=== PATIENT | female | born 1940 | race Caucasian/White ===

== ENCOUNTER → 2016-10-22 | Outpatient (CLI) | payer OTHER, BC ==
[~2016-10-22] MED LIST: ALBU1.257 NEB; ASPI81TA28 PO; ATRINS NEB; AZIT500T26 PO; CALC500C70 PO; CLB/200 PO; DXY100 PO; ERGO500037 PO; FAMO20TA11 PO; FLUT50SP45; LEVO-459 PO; LEVO1TAB35 PO; LISI-461 PO; METO25TA3 PO; MTR400 PO; NCDT21 TD; PRD10 PO; PRED20TA PO; RIFA150C15 PO; SIMV-151 PO; SYMIN160 INH; TRAM-10 PO; [UNRECOGNIZED DRUG - CODE] PO
--- NOTE | 2016-10-22 16:51 | DIAGNOSTIC IMAGING REPORT ---
RIGHT WRIST MIN 3 VIEWS ROUTINE CLINICAL HISTORY: R70.0 Elevated sedimentation rate Right COMPARISON: None. DISCUSSION: Moderate degenerative change throughout. No fracture or dislocation. Bone mineralization is within normal limits. There is no evidence for soft tissue swelling. IMPRESSION: Moderate degenerative change. No acute process. Electronically signed by: Joshua Villalpando M.D. 10/22/2016 4:50 PM Dictated Date/Time: 10/22/2016 4:50 PM
[2016-10-22 18:05] LABS: ALKALINE PHOSPHATASE 70 U/L (45-117); ALT/SGPT 16 U/L (12-78); AST/SGOT 14 U/L (15-37); RHEUMATOID FACTOR < 10.0 U/mL (0-15)
== END | disposition home or self-care (01) ==
LOC: C.RAD1850 16:20
PROVIDERS: ATTEND Internal Medicine Rheumatology
DX: R70.0 Elevated erythrocyte sedimentation rate (principal); A31.0 Pulmonary mycobacterial infection

== ENCOUNTER → 2016-11-17 | Outpatient (CLI) | payer OTHER, BC ==
--- NOTE | 2016-11-17 14:56 | DIAGNOSTIC IMAGING REPORT ---
CHEST CT WITHOUT CONTRAST CT DOSE: 461.39 mGycm HISTORY: Nodule R91.1 Solitary pulmonary [id number] Malignant neoplasm of upper TECHNIQUE: Multiaxial CT images of the chest were performed without contrast. COMPARISON: CT examination dated 01/23/2016, 08/19/2016, as well as the current study. FINDINGS: Progressive increase in size of a nodular density now measuring 16 x 14 mm medially adjacent to what appears to be a surgical clip and/or marker at the left upper lobe resection site. There is mild degree of stable pleural thickening laterally. Differential considerations include a postprocedural granuloma of versus recurrent neoplasm. The lungs otherwise show emphysematous and chronic interstitial change. There is a tubular structure left lung base diminished in size from the prior study. There are mild basilar fibrotic changes the most part stable. There is no significant hilar adenopathy. There is an anterior mediastinal node stable from the prior examination measuring 1.6 cm in long dimension. IMPRESSION: 1. Progressive increase in size of a nodular density left midlung region at the site of the previously described tubular nodularity. 2. It is immediately adjacent to a surgical clip or marker, and currently measures 1.6 x 1.4 cm. 3. Diagnostic considerations include recurrent or residual neoplasm, versus the less likely possibility of a scar granuloma 4. Stable mid mediastinal nodes. 5. Emphysematous change and basilar chronic fibrotic change. 6. Tubular structure left lung base diminished in size by 50% from the prior study Electronically signed by: Joshua Villalpando M.D. 11/17/2016 2:55 PM Dictated Date/Time: 11/17/2016 2:40 PM
== END | disposition home or self-care (01) ==
LOC: C.CTS 14:21
PROVIDERS: ATTEND Surgery
DX: C34.12 Malignant neoplasm of upper lobe, left bronchus or lung (principal); R91.1 Solitary pulmonary nodule; R91.8 Other nonspecific abnormal finding of lung field

== ENCOUNTER → 2016-11-26 | Outpatient (CLI) | payer OTHER, BC ==
--- NOTE | 2016-11-26 14:14 | DIAGNOSTIC IMAGING REPORT ---
PET/CT HISTORY: Lung cancer. TECHNIQUE: PET/CT was performed from the base of the skull through the pelvis following the intravenous administration of 13.7 mCi of F18-FDG. Non-contrast CT imaging was performed over the same range without breath-hold for attenuation correction of PET images and anatomic correlation, but not for primary interpretation as it is not of standard diagnostic quality. CT DOSE: COMPARISON: Chest CT 11/17/2016. PET CT 05/21/2016. FINDINGS: HEAD AND NECK: Scattered areas of FDG uptake within the neck are likely physiologic. Dominant focus anterior to the left C1 arch remains unchanged. CHEST: There is a new 1.8 cm FDG avid left supraclavicular lymph node demonstrating an SUV max of 5. There are new enlarged FDG avid left hilar, prevascular, and precarinal lymph nodes. Dominant precarinal lymph node measures 2.2 cm and demonstrates an SUV max of 6.4. These FDG avid lymph nodes are consistent with metastatic disease. Intense FDG uptake associated with the 2.6 x 1.7 cm mass adjacent to the left upper lobe suture line. This demonstrates an SUV max of 10. This is consistent with recurrent/residual neoplasm. Emphysema. There is a 1.3 cm ill-defined subcutaneous soft tissue focus within the right posterior back on image 100. This also demonstrates abnormal FDG uptake with an SUV max of 4.6 ABDOMEN/PELVIS: Below the diaphragm, tracer is distributed physiologically in the gastrointestinal and genitourinary tracts. There is no significant lymphadenopathy and no FDG-avid disease. MUSCULOSKELETAL: There is no FDG-avid or destructive bone lesion. IMPRESSION: 1. Interval development of mediastinal, left hilar, and left supraclavicular FDG avid lymphadenopathy consistent with metastatic disease. 2. A 2.6 x 1.7 cm left upper lobe mass adjacent to the suture line which demonstrates intense FDG uptake. This is consistent with recurrent/residual neoplasm. 3. A 1.3 cm ill-defined subcutaneous soft tissue focus within the right posterior back. This demonstrates abnormal FDG uptake. A metastatic focus at this location is considered less likely but not entirely excluded. This bears watching on future examinations. Electronically signed by: Armando Hidalgo M.D. 11/26/2016 2:13 PM Dictated Date/Time: 11/26/2016 2:02 PM
--- NOTE | 2016-12-04 10:05 | CODING QUERY MEDICAL NECESSITY ---
SUPPORTING DIAGNOSIS NEEDED A supporting diagnosis is required for the test/procedure performed on this patient in order for us to be reimbursed by the patient's insurance. Please provide a supporting diagnosis for the following test/procedure listed below next to the test name along with your signature. *If there is no additional diagnosis for this patient that would support the following test/procedure please document that below next to the test/procedure. Test(s)/Procedure(s) that require a supporting diagnosis: DOS 11/26 * PET/CT skull-thigh DIAGNOSIS: Provider Signature: Date: Thank you Neva Mitchell Health Information Management Once completed, please kindly fax back to [phone] For questions please call [phone]
== END | disposition home or self-care (01) ==
LOC: C.PET 11:20
PROVIDERS: ATTEND Surgery
DX: C34.90 Malignant neoplasm of unspecified part of unspecified bronchus or lung (principal); R91.1 Solitary pulmonary nodule

== ENCOUNTER → 2017-02-10 | Outpatient (CLI) | payer OTHER, BC ==
[~2017-02-10] MED LIST changes: -CALC500C70 PO; -NCDT21 TD
--- NOTE | 2017-02-10 11:13 | DIAGNOSTIC IMAGING REPORT ---
CT OF THE CHEST WITHOUT IV CONTRAST CLINICAL HISTORY: Solitary pulmonary nodule. Malignant neoplasm of left upper lobe. COMPARISON STUDY: Chest CT November 17, 2016 and PET/CT November 26, 2016. CT DOSE: 365.67 mGycm TECHNIQUE: Axial images of the chest were obtained without IV contrast. Images were reviewed in the axial, sagittal, and coronal planes. IV contrast was not administered for this examination. FINDINGS: Severe emphysema is noted. The patient is status post left upper lobe wedge resection. A 1.9 x 1.9 cm irregular nodule adjacent to the resection margin has increased in size since exam of November 17, 2016 when it measured 1.8 x 1.6 cm. Linear opacities within the lungs reflect atelectasis or scarring. Several left supraclavicular lymph nodes have moderately increased in size since prior chest CT and PET/CT. An index left supraclavicular node shown image 12 of 52 measures 1.3 cm. Mediastinal and left hilar nodes have increased in size as well. A precarinal node measures 3.2 x 2 cm. It previously measured 1.7 x 1.4 cm. A prevascular node measures 1.6 cm. It previously measured 1 cm. The heart is mildly enlarged. There is no pericardial effusion. There is no pneumothorax or pleural effusion. Bony thorax and upper abdomen are unremarkable. IMPRESSION: Findings consistent with progression of recurrent malignancy. Mild interval increase in size of an irregular 1.9 cm nodule adjacent to the resection margin which reflects recurrent neoplasm. Moderate increase in left supraclavicular and mediastinal lymphadenopathy. Electronically signed by: Bladimir Davey M.D. 02/10/2017 11:12 AM Dictated Date/Time: 02/10/2017 10:58 AM
== END | disposition home or self-care (01) ==
LOC: C.CTS 10:36
PROVIDERS: ATTEND Internal Medicine Pulmonary Disease
DX: C34.12 Malignant neoplasm of upper lobe, left bronchus or lung (principal); R91.1 Solitary pulmonary nodule

== ENCOUNTER 2017-03-04 22:36 | Inpatient (IN) | payer OTHER, BC ==
[~2017-03-04] VITALS: Ht 154.9 cm; Wt 59.1 kg
[~2017-03-04 22:36] MED LIST changes: -ALBU1.257 NEB; -AZIT500T26 PO; -DXY100 PO; -FLUT50SP45; -LEVALBUTEROL 1.25MG/3ML NEB INH ONE; -LEVO-459 PO; -LEVO1TAB35 PO; -LIDOCAINE 4% W/AFRIN NASAL SOLN 4ML ONE; -LIDOCAINE HCL 2% LOCAL 50ML VIAL INFIL ONE; -MIDAZOLAM HCL 5 MG/ML 1 ML VIAL IV ONE; -NURSING VERBAL MED ORDER ONE; -PRD10 PO; -PRED20TA PO; -RIFA150C15 PO; -SYMIN160 INH; -TRAM-10 PO; -[UNRECOGNIZED DRUG - CODE] PO
[2017-03-05] VITALS (10 sets, daily range): BP systolic 110–130; BP diastolic 53–84; PULSE 71–97; TEMP 36.3–36.9; O2SAT 90–95; Ht 154.9 cm; Wt 59.1 kg
[2017-03-05] MEDS ORDERED: VANCOMYCIN INJ 1,000 MG in SODIUM CHLORIDE 0.9% 250ML 250 ML IV STA (01:58)
[2017-03-05] MEDS ORDERED: ONDANSETRON INJ 2 MG/ML 2 ML VIAL IV PRN (02:00)
[2017-03-05] MEDS ORDERED: ACETAMINOPHEN 325 MG TAB PO PRN (02:00)
[2017-03-05] MEDS ORDERED: NITROGLYCERIN 0.4 MG SL PER TAB CHARGE SL PRN (02:00)
[2017-03-05] MEDS: LEVOFLOXACIN / D5W 500 MG in PREMIXED IN D5W 100 ML IV SCH (02:00)
[2017-03-05] MEDS ORDERED: PIPERACILL/TAZOBAC IV 3.375 GM in DEXTROSE 5% 100ML 100 ML IV ONE (02:15)
[2017-03-05] MEDS ORDERED: LEVALBUTEROL/IPRATROPIUM NEB INH SCH (03:00)
[2017-03-05] MEDS ORDERED: IPRATROPIUM BROMIDE NEB SOLN 0.02% 2.5 ML VIAL INH PRN (04:30)
[2017-03-05] MEDS ORDERED: PIPERACILL/TAZOBAC CONSULT ACTIVE PRN (04:30)
[2017-03-05] MEDS ORDERED: LEVALBUTEROL 1.25MG/0.5ML NEB INH PRN (04:30)
[2017-03-05] MEDS ORDERED: VANCOMYCIN CONSULT ACTIVE PRN (04:30)
--- NOTE | 2017-03-05 05:52 | History and Physical ---
History & Physical Date & Time of Service: Mar 05, 2017 at 05:52 Chief Complaint: Febrile Illness, Hallucinations Primary Care Physician: Ruslan Ayon M.D. History of Present Illness Source: patient The patient is a 76-year-old female with known history of lung cancer, who underwent a bronchoscopy by Dr. Odell earlier in the day. After she returned home, she developed a temperature, and became disoriented and confused, and was brought to the emergency department at [facility]. Her workup there included a temperature 103.1 degrees and elevated white blood cell count 12.7. Dr. Odell was called from the emergency department there by Dr. Banks, who was instructed to call [facility] hospitalist service to have the patient admitted here, and consult Dr. Odell. Upon arrival at [facility], the patient reports she is feeling a little bit better, she appears to be more oriented, her breathing has improved although was not optimal, complains of left lower diaphragm area pain when breathing, and also feels fatigued and somewhat generally weak. 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 Left upper lobe recurrence Status: Chronic Social History Smoking Status: Former Smoker Smokeless Tobacco Use: No Alcohol Use: none Drug Use: none Occupational Status: unemployed Immunizations History of Influenza Vaccine: Yes History of Tetanus Vaccine?: YES- NOT SURE WITHIN 2 YEARS History of Pneumococcal: Yes Pneumococcal Date: Jun 30, 2009 History of Hepatitis B Vaccine: Unknown Multi-Drug Resistant Organisms History of MDRO: No Allergies Coded Allergies: No Known Allergies (Verified , 03/04/17) Home Medications Scheduled Aspirin (Aspirin Ec), 81 MG PO QAM Celecoxib (CeleBREX), 1 CAP PO BID Ergocalciferol (Vitamin D 62236 Unit), 1 CAP PO WK Famotidine (Pepcid), 20 MG PO BID Lisinopril (Lisinopril), 20 MG PO QAM Metoprolol Succinate (Toprol Xl), 25 MG PO HS Simvastatin (Simvastatin), 20 MG PO Q2D Scheduled PRN Ibuprofen (Ibuprofen), 400 MG PO Q4 PRN for Pain Ipratropium [employer] (Ipratropium [employer]), 1 VIAL NEB QID PRN for SOB/Wheezing Review of Systems The patient denies palpitations, lower extremity swelling, sore throat, fevers , chills, sweats, weight change, vomiting, abdominal pain, pelvic pain, blood in urine or stool, dysuria, urinary frequency or urgency, lightheadedness, dizziness, headache, memory loss, rash, abnormal bruising or bleeding, focal weakness, numbness or tingling in arms or legs, arthralgias or myalgias, back or neck pain, night sweats. The review of systems is otherwise negative other than for that already noted above, and at least 10 systems have been reviewed. Physical Exam Vital Signs Date Time Temp Pulse Resp B/P (MAP) Pulse Ox O2 Delivery O2 Flow Rate FiO2 03/05/17 04:00 Room Air 03/05/17 04:00 36.3 83 20 113/57 (75) 95 Room Air 03/05/17 01:54 36.5 74 18 122/84 92 Room Air The patient is awake, well-developed and adequately nourished, alert and oriented 3, normocephalic and atraumatic, lying in bed and in no acute distress. HEENT--PERRL, EOMI, mucous membranes and oropharynx dry. Neck--supple, no JVD or bruits, thyroid normal, trachea midline, no adenopathy. Heart--normal S1 and S2, no extra beats, no murmurs, rubs or gallops. Lungs--few coarse breath sounds bilaterally, no respiratory distress, no accessory muscle use. Abdomen--normal bowel sounds and soft, nontender and nondistended, no hernias or masses, no organomegaly. Extremities--no cyanosis, clubbing or edema. There are good distal pulses b/l. Dermatologic--normal skin turgor, normal color, warm and dry, no abnormal lymph nodes, no rash. Neurologic--cranial nerves II through XII grossly intact. Rheumatologic--normal range of motion, nontender, muscles and joints. Psychiatric--normal affect. Diagnostics Diagnostic Radiology Chest x-ray shows new left lower lobe infiltrate, no pneumothorax. Impression Assessment and Plan Lung cancer/left lower lobe pneumonia/post bronchoscopy--patient will be admitted to the telemetry unit, start vancomycin IV, Zosyn IV, Levaquin IV, Xopenex with Atrovent nebulizers, and Solu-Medrol IV. Nasal cannula 2 L O2, titrating to keep pulse ox greater than or equal to 92%. 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 CAD/history of [place]/hypertension--continue metoprolol succinate 25 mg by mouth at bedtime, and lisinopril 20 mg by mouth every morning. Hold aspirin 81 mg by mouth every morning for now and Celebrex 200 mg by mouth twice a day. Hyperlipidemia--continue simvastatin 20 mg by mouth every 2 days. GERD--continue famotidine 20 mg by mouth twice a day. Level of Care Telemetry Advanced Directives Existing Advance Directive: No Existing Living Will: Yes Existing Power of Hand Ii Tube Bender: Yes Resuscitation Status FULL RESUSCITATION VTE Prophylaxis VTE Risk Assessment Done? Y/N: Yes Risk Level: Moderate Given or contraindicated: SCD's
[2017-03-05] MEDS: METHYLPREDNISOLONE IV 60 MG in SYRINGE 0 ML IV SCH ×4 (06:07→22:18)
[2017-03-05 07:11] LABS: CREATININE 0.88 mg/dl (0.60-1.20)
[2017-03-05] MEDS: IPRATROPIUM BROMIDE NEB SOLN 0.02% 2.5 ML VIAL INH SCH ×3 (07:15→19:03)
[2017-03-05] MEDS: LEVALBUTEROL 1.25MG/0.5ML NEB INH SCH ×3 (07:15→19:03)
[2017-03-05] MEDS ORDERED: PIPERACILL/TAZOBAC IV 3.375 GM in DEXTROSE 5% 100ML 100 ML IV SCH (08:00)
--- NOTE | 2017-03-05 08:00 | DIAGNOSTIC IMAGING REPORT ---
CHEST ONE VIEW PORTABLE CLINICAL HISTORY: hypoxia, lung cancer dyspnea COMPARISON STUDY: 02/24/2017 FINDINGS: Focal developing parenchymal infiltrate left base. All findings superimposed upon pre-existing findings described previously. Mild chronic interstitial change. No evidence pneumothorax. IMPRESSION: Slightly progressive left basilar infiltrate. All additional findings including mild chronic interstitial change are unaltered from the prior exam. Electronically signed by: Joshua Villalpando M.D. 03/05/2017 7:59 AM Dictated Date/Time: 03/05/2017 7:57 AM
[2017-03-05] MEDS: GUAIFENESIN 600 MG TABCR PO SCH ×2 (08:15→20:07)
[2017-03-05] MEDS: FAMOTIDINE 20 MG TAB PO SCH ×2 (08:15→20:07)
--- NOTE | 2017-03-05 10:38 | Pharmacy Progress Note ---
Pharmacy Antibiotic Consult Date of Service: Mar 05, 2017. Pharmacy Dosing Scope Pharmacy is consulted to initiate vancomycin IV dosing therapy, order appropriate labs and adjust drug dose/frequency. Subjective The patient is a 76 year old female admitted on Mar 05, 2017 at 01:53. Objective Height (Feet): 5 Height (Inches): 1.00 Weight (Kilograms): 59.600 Lab Results (24hrs): Test 03/05/17 06:37 Creatinine 0.88 mg/dl (0.60-1.20) Est Creatinine Clear Calc Drug Dose 45.1 ml/min Estimated GFR () 74.0 Estimated GFR (Non- 63.8 Assessment & Plan Assessment * 76 yo F with ?HAP s/p bronchoscopy 03/04. Hx lung CA, COPD, former smoker. * Antibiotics * Clindamycin 900 mg IV x1 03/04 @2000 at [facility] * Zosyn started 03/05 200, now discontinued * Levofloxacin 500 mg IV x1 03/05 @ 0200, ongoing q24h * Vancomycin 1 g IV x1 03/05 @ 0400, ongoing * Bronchoscopy 03/04. Cultures pending, but Gram stains with the following: * Bacterial: few GPC, rare GPR, many WBC, moderate epithelial cells * Fungal: rare yeast * Mycobacterial: no AFB noted * MRSA nasal swab ordered Vancomycin * Goal vancomycin level 15-20 mcg/mL * estimated CrCL ~36-45 mL/min, with * Elderly patients with lower weights tend to require more vancomycin than often anticipated (especially in terms of mg/kg). Will dose at 17 mg/kg at close to estimated t 1/2 * Will obtain early trough to ensure more aggressive dosing is not too aggressive Plan * Vancomycin 1000 mg IV q16h * Trough 03/06 @ 2130 * Will follow bronchoscopy cultures from previous visit and MRSA nasal swab from this visit Pharmacy will continue to follow and will adjust dose/frequency as necessary. Thank you
--- NOTE | 2017-03-05 10:56 | Hospitalist Progress Note ---
Hospitalist Progress Note Date of Service Mar 05, 2017. (Jeni Junior ., REEDC) Subjective Pt evaluation today including: conversation w/ patient, physical exam, chart review, lab review, review of studies, review of inpatient medication list Voiding: no voiding problems, no incontinence Patient states she is feeling well this AM. Oriented x3. +Non productive cough. On RA w/ no signs of acute distress, able to speak full sentences. Patient denies any fever, chills, sweats, lightheadedness, dizziness, vision changes, CP, palpitations, edema, SOB, wheezing, abdominal pain, nausea, vomiting, diarrhea, urinary symptoms, melena, numbness/tingling, weakness, muscle/joint pain, anxiety/depression, active bleeding, or new skin discoloration/changes. (Jeni Junior ., REEDC) Medications Current Inpatient Medications Medications (Trade) Dose Ordered Sig/Ashia Route Start Time Stop Time Status Last Admin Dose Admin Methylprednisolone Sodium Succinate 60 mg/Syringe 0.96 ml @ 1.5 mls/min Q6H IV 03/05/17 04:30 04/04/17 04:29 03/05/17 06:07 1.5 MLS/MIN Ondansetron HCl (Zofran Inj) 4 mg Q6H PRN IV 03/05/17 02:00 04/04/17 01:59 Levofloxacin 500 mg/Prmx 100 ml @ 100 mls/hr Q24H IV 03/05/17 02:00 03/12/17 01:59 03/05/17 02:00 100 MLS/HR Guaifenesin (Mucinex Contr Rel Tab) 600 mg BID PO 03/05/17 09:00 04/04/17 08:59 03/05/17 08:15 600 MG Famotidine (Pepcid Tab) 20 mg BID PO 03/05/17 09:00 04/04/17 08:59 03/05/17 08:15 20 MG Metoprolol Succinate (Toprol Xl Tab) 25 mg HS PO 03/05/17 21:00 04/04/17 20:59 Acetaminophen (Tylenol Tab) 650 mg Q4H PRN PO 03/05/17 02:00 04/04/17 01:59 Nitroglycerin (Nitrostat Tab) 0.4 mg UD PRN SL 03/05/17 02:00 04/04/17 01:59 Ipratropium [place] (Atrovent 0.02% 0.5MG/2.5ML Neb) 0.5 mg Q6R INH 03/05/17 09:00 04/04/17 08:59 03/05/17 07:15 0.5 MG Levalbuterol (Xopenex 1.25MG/ 0.5ML Neb) 1.25 mg Q6R INH 03/05/17 09:00 04/04/17 08:59 03/05/17 07:15 1.25 MG Ipratropium [place] (Atrovent 0.02% 0.5MG/2.5ML Neb) 0.5 mg Q2H PRN INH 03/05/17 04:30 04/04/17 04:29 Levalbuterol (Xopenex 1.25MG/ 0.5ML Neb) 1.25 mg Q2H PRN INH 03/05/17 04:30 04/04/17 04:29 Vancomycin HCl (Consult) 1 ea UD PRN N/A 03/05/17 04:30 04/04/17 04:29 Vancomycin HCl 1000 mg/Sodium Chloride 270 ml @ 125 mls/hr Q16H IV 03/05/17 14:00 03/12/17 13:59 (Jeni Junior PA-C) Objective Vital Signs Date Time Temp Pulse Resp B/P (MAP) Pulse Ox O2 Delivery O2 Flow Rate FiO2 03/05/17 07:30 Room Air 03/05/17 07:28 36.9 89 20 124/57 (79) 91 Room Air 03/05/17 07:16 76 16 94 Room Air 03/05/17 04:00 Room Air 03/05/17 04:00 36.3 83 20 113/57 (75) 95 Room Air 03/05/17 01:54 36.5 74 18 122/84 92 Room Air (Jeni Junior PA-C) Physical Exam General Appearance: no apparent distress Eyes: normal inspection, PERRL ENT: hearing grossly normal Neck: supple Respiratory/Chest: lungs clear, no respiratory distress, no accessory muscle use, + decreased breath sounds Cardiovascular: regular rate, rhythm Abdomen: normal bowel sounds, non tender, soft Extremities: no pedal edema, no calf tenderness Neurologic/Psychiatric: alert, normal mood/affect, oriented x 3 Skin: normal color, warm/dry, no rash (Jeni Junior PA-C) Laboratory Results Last 24 Hours Test 03/05/17 06:37 Creatinine 0.88 mg/dl Est Creatinine Clear Calc Drug Dose 45.1 ml/min Estimated GFR () 74.0 Estimated GFR (Non- 63.8 (Jeni Junior PA-C) Assessment and Plan The patient is a 76-year-old female with known history of lung cancer, who underwent a bronchoscopy by Dr. Odell earlier in the day. After she returned home, she developed a temperature, and became disoriented and confused, and was brought to the emergency department at [facility]. Lung cancer/left lower lobe pneumonia/s/p bronchoscopy on 03/[address] Odell: - Admit to tele for cardiac monitoring- no acute events -- Transfer to med/surg on 03/05 - Admitted on Vancomycin IV, Zosyn IV, Levaquin IV -- d/c'd Zosyn - MRSA swab pending - Xopenex with Atrovent nebulizers QID and q2 hrs PRN - Solu-Medrol IV 60 mg q6 hrs and taper - Mucinex 600 mg BID - O2 protocol, O2 sats >92% CAD and h/o FL: Continue Metoprolol 25 mg HS, ASA 81 mg QAM HTN: Continue Lisinopril 20 mg QAM Hyperlipidemia: Continue Simvastatin 20 mg Q2D Osteoporosis: Continue Celebrex 200 mg BID GERD: Continue Famotidine 20 mg BID DVT prophylaxis: Heparin, DANIELE and SCDs Code Status: LEVEL I, FULL Dispo: From home, lives w/ son- social work specialist consulted- hopeful discharge in the next 1-2 days on Levaquin and Doxycycline (Jeni Junior PA-C) I personally examined pt and verified all lorenzana points w Ebenezer Junior PA-C feeling ok breathing OK no new problems no f/c/s. all other ROS otherwise negative except for as above vitals noted nad breathing unlabored on RA no accessory muscles good effort HAP - frail situation hence admission to ensure ipmrovement. does appear improving. levaquin/vanco --> transfer to med surg. probably home on levaquin/ doxy tomorrow (Odilia, Giuseppe, D.O.)
[2017-03-05 12:47] LABS: INR 1.1 (0.9-1.1); PARTIAL THROMBOPLASTIN RATIO 1.3
[2017-03-05] MEDS: VANCOMYCIN INJ 1,000 MG in SODIUM CHLORIDE 0.9% 250ML 250 ML IV SCH (14:46)
[2017-03-05] MEDS: CeleBREX 200 MG CAP PO SCH (20:07)
[2017-03-05] MEDS: HEPARIN SOD 5000 UNIT/0.5 ML CARP SQ SCH (20:50)
[2017-03-05] MEDS ORDERED: METOPROLOL SUCC 25MG EXT REL TAB PO SCH (21:00)
[2017-03-06 00:28] VITALS: BP 126/67; PULSE 76; TEMP 36.7; O2SAT 95
[2017-03-06] MEDS: IPRATROPIUM BROMIDE NEB SOLN 0.02% 2.5 ML VIAL INH SCH ×2 (01:47→07:10)
[2017-03-06] MEDS: LEVALBUTEROL 1.25MG/0.5ML NEB INH SCH ×2 (01:47→07:10)
[2017-03-06] MEDS: LEVOFLOXACIN / D5W 500 MG in PREMIXED IN D5W 100 ML IV SCH (02:14)
[2017-03-06] MEDS: METHYLPREDNISOLONE IV 60 MG in SYRINGE 0 ML IV SCH ×2 (03:51→10:30)
[2017-03-06] MEDS: VANCOMYCIN INJ 1,000 MG in SODIUM CHLORIDE 0.9% 250ML 250 ML IV SCH (05:32)
[2017-03-06 07:04] LABS: HEMATOCRIT 34.6 % (37-47); MEAN CELL VOLUME 88.3 fL (80-100); MEAN CORPUSCULAR HEMOGLOBIN 27.6 pg (25-34); MEAN CORPUSCULAR HGB CONC 31.2 g/dl (32-36); MEAN PLATELET VOLUME 10.3 fL (7.4-10.4); PLATELET COUNT 267 K/uL (130-400); RED BLOOD COUNT 3.92 M/uL (4.2-5.4)
[2017-03-06 07:10] VITALS: PULSE 63; O2SAT 96
[2017-03-06 07:39] LABS: BUN/CREATININE RATIO 24.8 (10-20); CALCIUM 9.4 mg/dl (8.5-10.1); CREATININE 0.83 mg/dl (0.60-1.20); POTASSIUM 3.8 mmol/L (3.5-5.1)
[2017-03-06 07:45] VITALS: BP 126/73; PULSE 66; TEMP 36.5; O2SAT 93
[2017-03-06] MEDS ORDERED: LISINOPRIL 20 MG TAB PO SCH (08:00)
[2017-03-06] MEDS ORDERED: ASPIRIN 81 MG ECTAB PO SCH (08:00)
[2017-03-06] MEDS: FAMOTIDINE 20 MG TAB PO SCH (08:03)
[2017-03-06] MEDS: CeleBREX 200 MG CAP PO SCH (08:03)
[2017-03-06] MEDS: GUAIFENESIN 600 MG TABCR PO SCH (08:04)
[2017-03-06] MEDS: HEPARIN SOD 5000 UNIT/0.5 ML CARP SQ SCH (08:08)
[2017-03-06] MEDS ORDERED: SIMVASTATIN 20 MG TAB PO SCH (09:00)
[2017-03-06] MEDS ORDERED: DXY100 PO (09:09)
[2017-03-06] MEDS ORDERED: LEVO-459 PO (09:09)
[2017-03-06] MEDS ORDERED: PRD10 PO (09:09)
--- NOTE | 2017-03-06 09:13 | Discharge Instructions ---
Discharge Instructions Date of Service Mar 06, 2017. Admission Reason for Admission: Febrile Illness, Hallucinations Discharge Discharge Diagnosis / Problem: Pneumonia Discharge Goals Goal(s): Decrease discomfort, Learn about illness, Diagnostic testing, Therapeutic intervention, Prevent Disease Progression Activity Recommendations Activity Limitations: resume your previous activity . Instructions / Follow-Up Instructions / Follow-Up New medications: 1. Levaquin 500 mg by mouth once daily until prescription is complete This medication is an antibiotic used to treat pneumonia (lung infection) 2. Doxycycline 100 mg by mouth twice per day until prescription is complete This medication is an antibiotic used to treat pneumonia (lung infection) 3. Prednisone taper- 60 mg by mouth on 03/06, then 50 mg by mouth on 03/07, then 40 mg by mouth on 03/08 and 03/09, then 30 mg by mouth on 03/10, then 20 mg by mouth on 03/11 and 03/12, then 10 mg by mouth on 03/13 Resume all other regular home medications as prescribed. Please follow-up with your PCP as scheduled on March 30 Please follow-up with Dr. Odell as scheduled on March 17 Please follow-up/keep all of your subspecialty appointments Current Hospital Diet Patient's current hospital diet: Regular Diet Discharge Diet Recommended Diet: Regular Diet Procedures Procedures Performed: Chest x-ray Pending Studies Studies pending at discharge: no Laboratory Results Last 24 Hours Test 03/05/17 12:27 03/06/17 06:43 Prothrombin Time 12.0 SECONDS Prothromb Time International Ratio 1.1 Activated Partial Thromboplast Time 32.7 SECONDS Partial Thromboplastin Ratio 1.3 White Blood Count 16.90 K/uL Red Blood Count 3.92 M/uL Hemoglobin 10.8 g/dL Hematocrit 34.6 % Mean Corpuscular Volume 88.3 fL Mean Corpuscular Hemoglobin 27.6 pg Mean Corpuscular Hemoglobin Concent 31.2 g/dl RDW Standard Deviation 45.1 fL RDW Coefficient of Variation 13.9 % Platelet Count 267 K/uL Mean Platelet Volume 10.3 fL Sodium Level 140 mmol/L Potassium Level 3.8 mmol/L Chloride Level 107 mmol/L Carbon Dioxide Level 27 mmol/L Anion Gap 6.0 mmol/L Blood Urea Nitrogen 21 mg/dl Creatinine 0.83 mg/dl Est Creatinine Clear Calc Drug Dose 47.6 ml/min Estimated GFR () 79.4 Estimated GFR (Non- 68.5 BUN/Creatinine Ratio 24.8 Random Glucose 154 mg/dl Calcium Level 9.4 mg/dl Medical Emergencies . Who to Call and When: Medical Emergencies: If at any time you feel your situation is an emergency, please call 911 immediately. . Non-Emergent Contact Non-Emergency issues call your: Primary Care Provider . . "Provider Documentation" section prepared by Jeni Junior. . VTE Core Measure Inpt VTE Proph given/why not?: Unfractionated heparin SQ, SCD's
--- NOTE | 2017-03-06 10:21 | Discharge Summary ---
Discharge Summary Date of Service Mar 06, 2017. (Jeni Junior PA-C) Discharge Summary Admission Date: Mar 05, 2017 at 01:58 Discharge Date: Mar 06, 2017 Discharge Disposition: Home Principal Diagnosis: Pneumonia Problems/Secondary Diagnoses: Lung cancer left lower lobe pneumonia/s/p bronchoscopy CAD and h/o MA HTN Hyperlipidemia Osteoporosis GERD Immunizations: Have You Had Influenza Vaccine: Yes History of Tetanus Vaccine?: YES- NOT SURE WITHIN 2 YEARS History of Pneumococcal: Yes Pneumococcal Date: Jun 30, 2009 History of Hepatitis B Vaccine: Unknown Procedures: CHEST ONE VIEW PORTABLE CLINICAL HISTORY: hypoxia, lung cancer dyspnea COMPARISON STUDY: 02/24/2017 FINDINGS: Focal developing parenchymal infiltrate left base. All findings superimposed upon pre-existing findings described previously. Mild chronic interstitial change. No evidence pneumothorax. IMPRESSION: Slightly progressive left basilar infiltrate. All additional findings including mild chronic interstitial change are unaltered from the prior exam. Electronically signed by: Joshua Villalpando M.D. 03/05/2017 7:59 AM Dictated Date/Time: 03/05/2017 7:57 AM The status of this report is Signed. Draft = Not yet reviewed or approved by Radiologist. Signed = Reviewed and approved by Radiologist. Consultations: Pulmonary- Dr. Odell (Jeni Junior PA-C) Medication Reconciliation New Medications: Doxycycline Hyclate (Doxycycline Hyclate) 100 Mg Cap 100 MG PO BID for 8 Days, #16 TABS Levofloxacin (Levaquin) 500 Mg Tab 500 MG PO DAILY for 8 Days, #8 TABS Prednisone (Prednisone) 10 Mg Tab 10 MG PO UD for 8 Days, #27 TABS 60 mg by mouth x1 day, then 50 mg x1 day, then 40 mg x2 day, 30 mg x1 day, 20 mg x2 days, then 10 mg x1 day Continued Medications: Aspirin (Aspirin Ec) 81 Mg Tab 81 MG PO QAM Celecoxib (CeleBREX) 200 Mg Cap 1 CAP PO BID for 30 Days, #60 CAP 2 Refills Ergocalciferol (Vitamin D 26130 Unit) 50,000 Unit Cap 1 CAP PO WK for 28 Days, #4 CAP 5 Refills Famotidine (Pepcid) 20 Mg Tab 20 MG PO BID, TAB Ibuprofen (Ibuprofen) 400 Mg Tab 400 MG PO Q4 PRN for Pain Ipratropium [place] (Ipratropium [place]) 0.5 Mg/2.5 Ml Nebu 1 VIAL NEB QID PRN for SOB/Wheezing for 30 Days, #300 ML 3 Refills Lisinopril (Lisinopril) 10 Mg Tab 20 MG PO QAM Metoprolol Succinate (Toprol Xl) 25 Mg Tabcr 25 MG PO HS, #30 TAB Simvastatin (Simvastatin) 20 Mg Tab 20 MG PO Q2D Discharge Exam Review of Systems: Constitutional: No fever, No chills, No sweats, No weakness, No fatigue Respiratory: + cough, + sputum, No shortness of breath, No hemoptysis Cardiovascular: No chest pain, No edema, No palpitations Abdomen: No pain, No nausea, No vomiting, No constipation Musculoskeletal: No joint pain, No muscle pain, No swelling, No calf pain Neurologic: No weakness, No numbness/tingling Psychiatric: No depression symptoms, No anxiety Hematologic / Lymphatic: No abnormal bleeding/bruising Integumentary: No rash, No itch, No new/changing skin lesions Physical Exam: General Appearance: no apparent distress Eyes: normal inspection, PERRL ENT: hearing grossly normal Neck: supple Respiratory/Chest: lungs clear, no respiratory distress, no accessory muscle use Cardiovascular: regular rate, rhythm Abdomen / GI: normal bowel sounds, non tender, soft Extremities: no calf tenderness, no pedal edema Neurologic/Psychiatric: alert, normal mood/affect, oriented x 3 Skin: normal color, warm/dry, no rash (Jeni Junior, MIGDALIA) Hospital Course Admission H&P: The patient is a 76-year-old female with known history of lung cancer, who underwent a bronchoscopy by Dr. Odell earlier in the day. After she returned home, she developed a temperature, and became disoriented and confused, and was brought to the emergency department at [facility]. Her workup there included a temperature 103.1 degrees and elevated white blood cell count 12.7. Dr. Odell was called from the emergency department there by Dr. Banks, who was instructed to call [facility] hospitalist service to have the patient admitted here, and consult Dr. Odell. Upon arrival at [facility], the patient reports she is feeling a little bit better, she appears to be more oriented, her breathing has improved although was not optimal, complains of left lower diaphragm area pain when breathing, and also feels fatigued and somewhat generally weak. Physical Exam Vital Signs Date Time Temp Pulse Resp B/P (MAP) Pulse Ox O2 Delivery O2 Flow Rate FiO2 03/05/17 04:00 Room Air 03/05/17 04:00 36.3 83 20 113/57 (75) 95 Room Air 03/05/17 01:54 36.5 74 18 122/84 92 Room Air The patient is awake, well-developed and adequately nourished, alert and oriented 3, normocephalic and atraumatic, lying in bed and in no acute distress. HEENT--PERRL, EOMI, mucous membranes and oropharynx dry. Neck--supple, no JVD or bruits, thyroid normal, trachea midline, no adenopathy. Heart--normal S1 and S2, no extra beats, no murmurs, rubs or gallops. Lungs--few coarse breath sounds bilaterally, no respiratory distress, no accessory muscle use. Abdomen--normal bowel sounds and soft, nontender and nondistended, no hernias or masses, no organomegaly. Extremities--no cyanosis, clubbing or edema. There are good distal pulses b/l. Dermatologic--normal skin turgor, normal color, warm and dry, no abnormal lymph nodes, no rash. Neurologic--cranial nerves II through XII grossly intact. Rheumatologic--normal range of motion, nontender, muscles and joints. Lung cancer/left lower lobe pneumonia/s/p bronchoscopy on 03/[address] Odell: - Admit to [facility] for cardiac monitoring- no acute events -- Transfer to med/surg on 03/05 - Admitted on Vancomycin IV, Zosyn IV, Levaquin IV -- d/c'd Zosyn -- Discharged w/ Doxycycline and Levaquin PO to complete 10 day course - MRSA swab- negative - Xopenex with Atrovent nebulizers QID and q2 hrs PRN - Solu-Medrol IV 60 mg q6 hrs- prednisone taper at discharge - Mucinex 600 mg BID - O2 protocol, O2 sats >92% CAD and h/o MA: Continue Metoprolol 25 mg HS, ASA 81 mg QAM HTN: Continue Lisinopril 20 mg QAM Hyperlipidemia: Continue Simvastatin 20 mg Q2D Osteoporosis: Continue Celebrex 200 mg BID GERD: Continue Famotidine 20 mg BID DVT prophylaxis: Heparin, DANIELE and SCDs Code Status: LEVEL I, FULL Dispo: Discharge to home - PCP and Dr. Odell f/u scheduled Total Time Spent: Greater than 30 minutes This includes examination of the patient, discharge planning, medication reconciliation, and communication with other providers. (Jeni Junior, PARodneyC) I personally examined pt and verified all lorenzana points w T Sandi NEGRON feeling better breathing OK no significant sob. ready to go home. all other ROS otherwise negative except for as above. discussed worthwhile to await pathology from bronch and then discuss with oncology -she was inclined to refuse treatment regardless, but discussed that it doesn't hurt to get more information. vitals noted nad breathing unlabored faint LLL rhochorus wheeze. HAP - improved. home on levaquin and doxy, discussed sun sensitivity lung cancer - discussed that she has every right to refuse treatment, but that with significant advances in treatment affecting much better survival with good quality of life in certain cases, it's well worth her while to at least get more information from oncology specific to her situation before closing any doors stable for home (Giuseppe Hartley D.Jeremy) Discharge Instructions Please refer to the electronic Patient Visit Report (Discharge Instructions) for additional information. (Jeni Junior, REEDC) Follow-Up Please follow-up with your PCP March 30 Please follow-up Dr. Odell March 17 Please follow-up/keep all of your subspecialty appointments (Jeni Junior, REEDC) Additional Copies To Ruslan Ayon M.D.
[2017-03-06 11:23] VITALS: BP 126/73; PULSE 66; TEMP 36.5; O2SAT 93
[2017-03-06 11:27] VITALS: BP 145/80; PULSE 73; TEMP 36.6; O2SAT 96
[2017-03-06] MEDS ORDERED: VANCOMYCIN TROUGH ONE (21:30)
[2017-04-22] MEDS ORDERED: FLUT50SP45 (18:33)
[2017-04-22] MEDS ORDERED: ALBU1.257 NEB (18:33)
[2017-04-22] MEDS ORDERED: LEVO1TAB35 PO (18:33)
[2017-04-22] MEDS ORDERED: PRED20TA PO (18:33)
[2017-04-22] MEDS ORDERED: TRAM-10 PO (18:33)
[2017-04-22] MEDS ORDERED: SYMIN160 INH (19:11)
== END 2017-03-06 13:35 | disposition home or self-care (01) | DRG 190 ==
LOC: C.2E 03-05 01:53 → UNDOADMIN 03-05 01:53 → C.2E 03-05 01:58 → ENRESERV 03-05 12:15 → C.4E 03-05 13:05
PROVIDERS: ADMIT Hospitalist; ATTEND Family Medicine
PROC: 0BB98ZX Excision of Lingula Bronchus, Via Natural or Artificial Opening Endoscopic, Diagnostic (ICD-10-PCS; principal; 2017-03-06)
PROC: 0B998ZX Drainage of Lingula Bronchus, Via Natural or Artificial Opening Endoscopic, Diagnostic (ICD-10-PCS; principal; 2017-03-06)
DX: J44.0 Chronic obstructive pulmonary disease with (acute) lower respiratory infection (principal); J18.9 Pneumonia, unspecified organism; C34.12 Malignant neoplasm of upper lobe, left bronchus or lung; Y95 Nosocomial condition; I25.2 Old myocardial infarction; K21.9 Gastro-esophageal reflux disease without esophagitis; I25.10 Atherosclerotic heart disease of native coronary artery without angina pectoris; I10 Essential (primary) hypertension; E78.5 Hyperlipidemia, unspecified; M81.0 Age-related osteoporosis without current pathological fracture; Z79.899 Other long term (current) drug therapy; Z79.82 Long term (current) use of aspirin; Z87.891 Personal history of nicotine dependence; I25.5 Ischemic cardiomyopathy; Z90.710 Acquired absence of both cervix and uterus; Z90.49 Acquired absence of other specified parts of digestive tract; Z82.3 Family history of stroke; Z80.0 Family history of malignant neoplasm of digestive organs

== ENCOUNTER → 2017-03-04 | Day surgery (SDC) | payer OTHER, BC ==
[~2017-03-04] VITALS: Ht 154.9 cm; Wt 60.0 kg
[2017-03-04] VITALS (15 sets, daily range): BP systolic 119–202; BP diastolic 64–99; PULSE 66–84; TEMP 36.5–37; O2SAT 94–99; Ht 154.9 cm; Wt 60.0 kg
[~2017-03-04] MED LIST changes: +LEVALBUTEROL 1.25MG/3ML NEB INH ONE; +LIDOCAINE 4% W/AFRIN NASAL SOLN 4ML ONE; +LIDOCAINE HCL 2% LOCAL 50ML VIAL INFIL ONE; +MIDAZOLAM HCL 5 MG/ML 1 ML VIAL IV ONE; +NURSING VERBAL MED ORDER ONE
--- NOTE | 2017-03-04 08:57 | History & Physical Bridge Note ---
H&P Re-Evaluation Bridge Note: I have examined the patient, reviewed the History & Physical and in the interval since the performance of the History & Physical I have noted the following changes of clinical significance: No changes noted
--- NOTE | 2017-03-04 08:58 | Procedure Note ---
Pre-Mod Sedation Assessment General Date of Moderate Sedation: Mar 04, 2017. Vital Signs: Vital Signs Past 12 Hours Date Time Temp Pulse Resp B/P (MAP) Pulse Ox O2 Delivery O2 Flow Rate FiO2 03/04/17 08:43 36.5 67 18 169/91 95 Room Air 03/04/17 08:04 36.5 67 18 169/91 (117) 95 Room Air Pre-Sedation Airway Assessment Oral Cavity: Dentures Short Thick Neck: No Hx of Sleep Apnea: No Smoking Status: Former Smoker Mallampati Classification: Class I ASA Classification: Class III Procedure Planning Contraindications-for Mod Sed: None Yes Notes The planned sedation has been discussed with the patient and consent obtained. I have identified the patient, determined the appropriateness of sedation and have assessed the patient immediately prior to the procedure. All medicine(s) and interventions are by my order.
--- NOTE | 2017-03-04 09:54 | DIAGNOSTIC IMAGING REPORT ---
INSPIRATORY/EXPIRATORY CHEST RADIOGRAPH CLINICAL HISTORY: Status post bronchoscopy. Lung cancer. FINDINGS: AP upright inspiratory and expiratory chest radiographs are compared to study dated 03/04/2016 and correlated with chest CT dated 02/10/2017. The Examinations her degraded by patient rotation and by the patient's head obscuring the lung apices. The heart is top normal for projection. The pulmonary vasculature is noncongested. There is atherosclerotic calcification of the thoracic aorta. Advanced emphysema and chronic interstitial thickening are similar to previous. Postoperative change is seen in the left lung. A 2.1 cm nodule is noted in the left upper lung. Patchy airspace opacities are seen in the left upper lung, possibly representing postprocedural hemorrhage. The right lung is grossly clear. No large pleural effusion is seen. No pneumothorax is identified on the inspiratory/expiratory views. Scarring is noted at the left lung base. The skeletal structures are osteopenic. There are healed left-sided rib fractures. IMPRESSION: 1. No pneumothorax is seen post procedure. 2. Advanced emphysema, postoperative change in the left lung, and a left upper lobe pulmonary lesion are again noted. 3. Patchy airspace opacities in the left midlung likely represent post procedural hemorrhage. Electronically signed by: Hubert Choe M.D. 03/04/2017 9:52 AM Dictated Date/Time: 03/04/2017 9:50 AM
--- NOTE | 2017-03-04 10:04 | Discharge Instructions ---
Discharge Instructions Date of Service Mar 04, 2017. Admission Reason for Admission: Lung Cancer, Dyspnea Discharge Goals Goal(s): Diagnostic testing, Therapeutic intervention Activity Recommendations Activity Limitations: resume your previous activity Exercise/Sports Limitations: gradually increase as tolerated Shower/Bathe: no limitations Driving or Machine Use: Do not drive today . Discharge Diet Recommended Diet: Regular Diet Pending Studies Studies pending at discharge: yes List of pending studies: - Cultures and pathology from bronchoscopy lavage Medical Emergencies . Who to Call and When: Medical Emergencies: If at any time you feel your situation is an emergency, please call 911 immediately. . Non-Emergent Contact Non-Emergency issues call your: Primary Care Provider, Crisis Specialist . . "Provider Documentation" section prepared by Scarlett Garcia. . VTE Core Measure Inpt VTE Proph given/why not?: Contraindicated
--- NOTE | 2017-03-04 10:08 | Discharge Instructions ---
Discharge Instructions Date of Service Mar 04, 2017. Admission Reason for Admission: Lung Ca, Shortness Of Breath Discharge Discharge Diagnosis / Problem: Dyspnea Discharge Goals Goal(s): Therapeutic intervention Activity Recommendations Activity Limitations: per Instructions/Follow-up section Exercise/Sports Limitations: gradually increase as tolerated Shower/Bathe: no limitations Driving or Machine Use: Do not drive today . Instructions / Follow-Up Instructions / Follow-Up ACTIVITY RECOMMENDATIONS: * Rest today, resume normal activity tomorrow. * Do not drive today. SPECIAL CARE INSTRUCTIONS: * Call your physician if you experience any chest or shoulder pain, fever, coughing, spitting up blood (more than 2 teaspoons) or excessive shortness of breath. * Remove dressing from IV site (where needle was placed into the vein) after 2 hours. Apply a warm, moist compress to site if irritation occurs. Call physician if site becomes red or painful to touch. FOLLOW UP VISIT: * Keep any scheduled doctor appointments. Discharge Diet Recommended Diet: Regular Diet Pending Studies Studies pending at discharge: yes List of pending studies: - Cultures and analysis of the bronchoscopy lavage Medical Emergencies . Who to Call and When: Medical Emergencies: If at any time you feel your situation is an emergency, please call 911 immediately. . Non-Emergent Contact Non-Emergency issues call your: Primary Care Provider, Aquarist . . "Provider Documentation" section prepared by Scarlett Garcia. . VTE Core Measure Inpt VTE Proph given/why not?: Contraindicated
--- NOTE | 2017-03-06 12:53 | Procedure Note ---
Procedure Note Date of Service 03/04/17 Procedure Note Bronchoscopy report Indications: Previous history of bronchogenic carcinoma with new lingular opacity and persistent cough refractory to outpatient therapy. Preoperative medication: None Medications during procedure: 3 mg IV Versed, 20 cc 2% Xylocaine below the cords , 4% viscous Xylocaine intranasally Procedure: Patient was taken to the bronchoscopy suite. The fiberoptic bronchoscope was inserted into the left nares with minimal difficulty and passed to the level of the true vocal cords. The cords appeared to approximate normally with phonation without evidence for lesions or paralysis. The area was anesthetized with 2% Xylocaine spray. The scope present anterior to the trachea and right and left tracheobronchial tree. The chris was sharp. The right mainstem bronchus was entered and found to be free of endobronchial lesions. The right upper lobe the apical posterior and anterior segments were found to be free of endobronchial lesions. The bronchus intermedius, right middle lobe with a medial lateral segments and all basal segments right lower lobe were found to be free of endobronchial lesions. Bronchial crypts and clefts with mucous pitting were seen throughout the right tracheobronchial tree. The left mainstem bronchus was explored and no overt endobronchial lesions were seen .The left lower lobe bronchus with all basilar segments were free of any lesions with a moderate amount of inflammatory mucosal changes seen. The left upper lobe the apical and posterior segments were free of any bite lesions. The lingula subdivision showed evidence for volume loss and with significant mucosal irregularity at the orifice and takeoff of the subsegments. Significant mucopurulent secretion was lavaged from the lingula orifice still clear and sent for appropriate studies. Brushings were taken from the lingula orifice and subsegments for cytologic preparation 3 with a minimal amount of bleeding which abated spontaneously. Iced saline lavage was instilled into the lingula orifice and several endobronchial biopsies were taken with a moderate amount of bleeding which abated spontaneously. No additional biopsies were undertaken or transbronchial biopsies undertaken. Fluoroscopy was utilized. Procedure was terminated and patient appeared to tolerate the procedure well. She was given a nebulizer treatment with Xopenex 1.25 mg and a post bronchoscopy inspiratory and expiratory film were obtained which showed no evidence for pneumothorax and perhaps with a mild degree of hemorrhage seen involving the left lower lobe. Patient was transferred to the medical treatment unit hemodynamically stable with no signs of respiratory compromise. We'll await microbiological, cytological, and histopathologic diagnosis.
[2017-03-30 23:44] LABS: HERPES SIMPLEX CULT SOURCE OTHER-LINGULAR WASH/; HERPES SIMPLEX VIRUS CULT NOT ISOLATED (NOT ISOLATED)
== END | disposition home or self-care (01) ==
LOC: C.ACU 07:48
PROVIDERS: ATTEND Internal Medicine Pulmonary Disease
DX: C34.12 Malignant neoplasm of upper lobe, left bronchus or lung (principal); J44.9 Chronic obstructive pulmonary disease, unspecified; I25.10 Atherosclerotic heart disease of native coronary artery without angina pectoris; I25.5 Ischemic cardiomyopathy; Z90.710 Acquired absence of both cervix and uterus; Z90.49 Acquired absence of other specified parts of digestive tract; Z87.891 Personal history of nicotine dependence; Z82.3 Family history of stroke; Z80.0 Family history of malignant neoplasm of digestive organs

== ENCOUNTER 2017-04-22 16:09 | Inpatient (IN) | payer OTHER, BC ==
[~2017-04-22] VITALS: Ht 154.9 cm; Wt 60.9 kg
[~2017-04-22 16:09] MED LIST changes: -ALBU1.257 NEB; -FLUT50SP45; -LEVO1TAB35 PO; -PRED20TA PO; -SYMIN160 INH; -TRAM-10 PO
[2017-04-22 17:15] VITALS: BP 115/75; PULSE 97; TEMP 36.9; O2SAT 94; Ht 154.9 cm; Wt 60.9 kg
--- NOTE | 2017-04-22 17:52 | History and Physical ---
History & Physical Date & Time of Service: Apr 22, 2017 at 17:39 Chief Complaint: Recent Pneumonia, Dyspnea, Sob Primary Care Physician: Ruslan Ayon M.D. History of Present Illness This is a 76 yo F with PMHx of COPD, emphysema, tobacco history of 1 ppd x 55 years, quit smoking in January 2015, non-small cell lung carcinoma originally diagnosed February 2015, HTN, ischemic cardiomyopathy, CAD, known compression deformities at T11 and L2, GERD, and depression who presents from the pulmonary clinic with worsening shortness of breath x 2 days. The patient believes she caught a cold from her brother who was visiting and sick with an upper respiratory infection over the weekend. She noticed increased cough and sputum production starting Thursday. A prescription for Levaquin 750 mg was called in by pulmonology and she has taken 2 days worth of this so far. She also increased her prednisone from 20 mg daily to 40 mg daily, but still continues to feel more short of breath. This morning she checked her oxygenation with a pulse ox and it was 90% on room air, where normally she is around 95%. She denies any fevers or chills. She is dyspneic on exertion after about 50 feet where normally she is able to ambulate without difficulty with rolling walker. She does not require supplemental o2 at baseline. She lives at home with her son. A CXR was obtained this morning and shows mild increase in nodularity left midlung. Improved infiltrate left base. 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 Left upper lobe recurrence Status: Chronic Ischemic cardiomyopathy CAD Known compression deformities at T11 and L2, GERD Depression Family History Family Hx: Father: Colon cancer CAD Asthma CVA Surgical Hx: Appendectomy Cardiac cath Hysterectomy Thoracoscopy with therapeutic wedge resection of the lung Social History Smoking Status: Former Smoker Drug Use: none Occupational Status: unemployed Immunizations History of Influenza Vaccine: Yes History of Tetanus Vaccine?: YES- NOT SURE WITHIN 2 YEARS History of Pneumococcal: Yes Pneumococcal Date: Jun 30, 2009 History of Hepatitis B Vaccine: Unknown Multi-Drug Resistant Organisms History of MDRO: No Allergies Coded Allergies: No Known Allergies (Verified , 03/04/17) Home Medications Scheduled Albuterol Sulfate (Albuterol Sulfate), 1 VIAL NEB Q4 Aspirin (Aspirin Ec), 81 MG PO QAM Budesonide/Formoterol Fumarate (Symbicort 160/4.5 Inhaler ), 2 PUFFS INH BID Ergocalciferol (Vitamin D 19875 Unit), 1 CAP PO WK Famotidine (Pepcid), 20 MG PO BID Fluticasone Propionate (Nasal) (Allergy Nasal Delta 24 Ho), 1 SPRAY NA BID Levofloxacin (Levaquin), 750 MG PO DAILY Lisinopril (Lisinopril), 20 MG PO QAM Metoprolol Succinate (Toprol Xl), 25 MG PO HS Prednisone (Prednisone), 20 MG PO DAILY Simvastatin (Simvastatin), 20 MG PO Q2D Scheduled PRN Ipratropium [place] (Ipratropium [place]), 1 VIAL NEB QID PRN for SOB/Wheezing Tramadol (Ultram), 50 MG PO Q6H PRN for Pain Review of Systems Constitutional: + fatigue, No fever, No chills, No sweats, No weakness Eyes: No worsening of vision, No diplopia ENT: No sore throat, No trouble swallowing Respiratory: + cough, + sputum, + wheezing, + shortness of breath, + dyspnea on exertion, No dyspnea at rest, No hemoptysis Cardiovascular: No chest pain, No edema Abdomen: No pain, No nausea, No vomiting, No diarrhea, No constipation (last BM 04/21) Genitourinary - Female: No dysuria Neurologic: No memory loss, No numbness/tingling Psychiatric: + depression symptoms Endocrine: + fatigue Integumentary: No rash, No itch Physical Exam General Appearance: WD/WN, no apparent distress Head: normocephalic, atraumatic Eyes: PERRL, EOMI ENT: hearing grossly normal, pharynx normal Neck: supple, no JVD Respiratory/Chest: chest non-tender, + pertinent finding (+ expiratory wheeze throughout on the Left in anterior and posterior caceres, + diminished breath sounds at the R base. No rales or rhonchi. On room air. + cough with yellow sputum production.) Cardiovascular: regular rate, rhythm, no murmur, normal peripheral pulses Abdomen/GI: normal bowel sounds, non tender, soft, no organomegaly Back: normal inspection Extremities/Musculoskelatal: normal inspection, no calf tenderness, no pedal edema Neurologic/Psych: alert, normal reflexes, oriented x 3 Skin: normal color, warm/dry Diagnostics Diagnostic Radiology CHEST 2 VIEWS ROUTINE CLINICAL HISTORY: J20.9 Acute [id number] dyspnea COMPARISON STUDY: 03/05/2017 FINDINGS: Improved infiltrative change left base. Solitary pulmonary nodule left midlung perhaps slightly increased in volume. Right hemithoracic region is clear. IMPRESSION: Mild increase in nodularity left midlung. Improved infiltrate left base. The above report was generated using voice recognition software. It may contain grammatical, syntax or spelling errors. Electronically signed by: Joshua Villalpando M.D. 04/22/2017 2:18 PM Dictated Date/Time: 04/22/2017 2:14 PM The status of this report is Signed. Impression Assessment and Plan 76 yo F with PMHx of COPD, emphysema, tobacco history of 1 ppd x 55 years, quit smoking in January 2015, non-small cell lung carcinoma originally diagnosed February 2015, HTN, ischemic cardiomyopathy, CAD, known compression deformities at T11 and L2, GERD, and depression who presents from the pulmonary clinic with worsening shortness of breath x 2 days. COPD exacerbation Non-small cell lung carcinoma - Admit to med/surg - Will order IV solumedrol 60 mg Q8H, levaquin IV (had started PO abx on 04/20) - Duoneb treatments QID and Q2H prn for shortness of breath - Obtain sputum culture when produced - Will obtain 2 sets of blood cultures, CBC w/ diff, and PRP - CXR from this morning reviewed showing improved infiltrative change left base. Solitary pulmonary nodule left midlung perhaps slightly increased in volume. Right hemithoracic region is clear. - Her last CT scan on 02/10/17 showed severe emphysema in the left upper/ lingular nodule in mass now measuring 3.2 x 2 cm with increased precarinal lymph node with FDG activity. This was reviewed by Dr. Odell shortly after her last admission from 03/05-03/06 where she underwent bronchoscopy. Endobronchial biopsies and brushings were negative for malignancy. - Pt has significant smoking history of 55 years. She was also exposed to second had smoking as a child because both parents smoked in the home. Her son who lives with her also smokes although she reports it is mostly outside of her home. - Consider pulmonary consult in the morning by day team Ischemic Cardiomyopathy CAD - Continue metoprolol 25 mg QHS, lisinopril 20 mg daily - stable Known compression deformities at T11 and L2 - Uses tramadol for pain prn - stable Depression - stable DVT ppx: Lovenox 40 mg Subq, teds, scds CODE STATUS: FULL CODE Disposition: From home, lives with son, discharge when medically stable. Level of Care Med/Surg Resuscitation Status FULL RESUSCITATION VTE Prophylaxis VTE Risk Assessment Done? Y/N: Yes Risk Level: Low Given or contraindicated: Mandi Stockings, SCD's Note Attending Admission Note & Attestation: Pt seen/examined, chart reviewed, care plan d/w DAVE Nuñez. I agree with the lorenzana components of her admission documentation. 76yo female with known lung cancer of the left lung and COPD who presents with ongoing/worsening pulmonary symptoms including cough, dyspnea, and sputum production despite outpatient Rx with steroids/abx. She has had increased wheezing as well. Seen in the pulmonary clinic today and admission was recommended. CXR in the clinic earlier in the day showed that a previous LLL pneumonia was improved from the prior CXR but there was increasing nodularity in the left lung (corresponding to her known lung cancer). During my assessment she c/o cough but no dyspnea at rest. PMH, PSH, allergies, meds, sochx, famhx, ros - reviewed VSS, no fever gen - coughing o/w NAD neck - no JVD mouth - no thrush heart - RRR lungs - diffuse wheezes b/l; crackles left mid lung and LLL; no rales on right abd - soft, NT ext - no edema, pulses 2+ b/l A/P: 1. COPD with exacerbation - agree with steroids, abx, nebs, incentive spirometry, mucinex, pulmonary toilet. Send sputum cx. 2. known left-sided lung cancer - this was a local recurrence as she was originally treated with a wedge resection at time of diagnosis. CT chest in February 2017 showed the tumor was growing. Certainly if her cancer is progressing this could be contributing to her ongoing pulmonary symptoms and exacerbations. Consider repeat chest CT if she fails to improve with the measures listed in # 1. 3. DVT proph - lovenox. Alex Remy MD
[2017-04-22] MEDS ORDERED: ACETAMINOPHEN 325 MG TAB PO PRN (18:30)
[2017-04-22] MEDS ORDERED: POLYETHYLENE (MIRALAX) 17 GM PACK PO PRN (18:30)
[2017-04-22] MEDS ORDERED: TRAMADOL HCL 50 MG TAB PO PRN (18:30)
[2017-04-22] MEDS ORDERED: PRED20TA PO ×2 (18:33)
[2017-04-22] MEDS ORDERED: ALBU1.257 NEB ×2 (18:33)
[2017-04-22] MEDS ORDERED: TRAM-10 PO ×2 (18:33)
[2017-04-22] MEDS ORDERED: LEVO1TAB35 PO ×2 (18:33)
[2017-04-22] MEDS ORDERED: FLUT50SP45 ×2 (18:33)
[2017-04-22 19:00] VITALS: PULSE 85; O2SAT 94
[2017-04-22] MEDS: ALBUT/IPRATROP 3MG/0.5MG NEB 3 ML VIAL INH SCH (19:00)
[2017-04-22] MEDS ORDERED: SYMIN160 INH ×2 (19:11)
[2017-04-22 19:45] VITALS: O2SAT 94
[2017-04-22 19:51] LABS: BASO % 0.1 %; BASO ABS # 0.01 K/uL (0-0.2); COMPLETE YES; EOS % 0.1 %; HEMATOCRIT 36.5 % (37-47); IG% 0.3 %; LYMPH % 2.6 %; LYMPH ABS # 0.29 K/uL (1.2-3.4); MEAN CELL VOLUME 86.7 fL (80-100); MEAN CORPUSCULAR HEMOGLOBIN 28.5 pg (25-34); MEAN CORPUSCULAR HGB CONC 32.9 g/dl (32-36); MEAN PLATELET VOLUME 9.5 fL (7.4-10.4); MONO % 1.6 %; NEUT % 95.3 %; PLATELET COUNT 341 K/uL (130-400); RED BLOOD COUNT 4.21 M/uL (4.2-5.4); WHITE BLOOD COUNT 11.14 K/uL (4.8-10.8)
[2017-04-22] MEDS: LEVOFLOXACIN / D5W 750 MG in PREMIXED IN D5W 150 ML IV SCH (19:55)
[2017-04-22 20:19] LABS: BUN/CREATININE RATIO 25.1 (10-20); CREATININE 0.84 mg/dl (0.60-1.20); POTASSIUM 3.8 mmol/L (3.5-5.1)
[2017-04-22 20:30] VITALS: BP 132/71; PULSE 86
[2017-04-22] MEDS: METHYLPREDNISOLONE IV 60 MG in SYRINGE 0 ML IV SCH (20:38)
[2017-04-22] MEDS: FLUTICASONE PROPIONATE NA SPR 16 GM BTL SCH (20:42)
[2017-04-22] MEDS: BUDESONIDE/FORMOTEROL FUMARATE 160/4.5 60 PUFFS/INHALER INH SCH (20:42)
[2017-04-22] MEDS: FAMOTIDINE 20 MG TAB PO SCH (20:44)
[2017-04-22] MEDS: ENOXAPARIN 40 MG/0.4 ML SYR SQ SCH (20:44)
[2017-04-22] MEDS: METOPROLOL SUCC 25MG EXT REL TAB PO SCH (20:45)
[2017-04-22] MEDS: GUAIFENESIN 600 MG TABCR PO SCH (22:14)
[2017-04-22 23:38] VITALS: BP 142/82; PULSE 76; TEMP 36.4; O2SAT 94
[2017-04-23] VITALS (7 sets, daily range): BP systolic 130–150; BP diastolic 66–84; PULSE 77–95; TEMP 36.6–37.2; O2SAT 92–97
[2017-04-23] MEDS: METHYLPREDNISOLONE IV 60 MG in SYRINGE 0 ML IV SCH ×3 (03:49→19:45)
[2017-04-23 06:29] LABS: COMPLETE YES; HEMATOCRIT 35.4 % (37-47); IG% 0.2 %; LYMPH % 3.4 %; LYMPH ABS # 0.37 K/uL (1.2-3.4); MEAN CELL VOLUME 87.6 fL (80-100); MEAN CORPUSCULAR HEMOGLOBIN 28.2 pg (25-34); MEAN CORPUSCULAR HGB CONC 32.2 g/dl (32-36); MEAN PLATELET VOLUME 9.4 fL (7.4-10.4); MONO % 0.6 %; NEUT % 95.8 %; PLATELET COUNT 350 K/uL (130-400); RED BLOOD COUNT 4.04 M/uL (4.2-5.4); WHITE BLOOD COUNT 10.93 K/uL (4.8-10.8)
[2017-04-23] MEDS: ALBUT/IPRATROP 3MG/0.5MG NEB 3 ML VIAL INH SCH ×4 (06:59→19:30)
[2017-04-23 07:04] LABS: BUN/CREATININE RATIO 26.8 (10-20); CALCIUM 8.7 mg/dl (8.5-10.1); CREATININE 0.74 mg/dl (0.60-1.20); POTASSIUM 4.2 mmol/L (3.5-5.1)
[2017-04-23] MEDS: FLUTICASONE PROPIONATE NA SPR 16 GM BTL SCH ×2 (07:46→21:02)
[2017-04-23] MEDS: BUDESONIDE/FORMOTEROL FUMARATE 160/4.5 60 PUFFS/INHALER INH SCH ×2 (07:46→21:03)
[2017-04-23] MEDS: LISINOPRIL 20 MG TAB PO SCH (07:47)
[2017-04-23] MEDS: FAMOTIDINE 20 MG TAB PO SCH ×2 (07:47→21:04)
[2017-04-23] MEDS: GUAIFENESIN 600 MG TABCR PO SCH ×2 (07:47→21:03)
[2017-04-23] MEDS: ASPIRIN 81 MG ECTAB PO SCH (07:47)
--- NOTE | 2017-04-23 13:15 | Progress Note ---
Subjective Date of Service: Apr 23, 2017. 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, no chest pain Review of Systems Constitutional: No see HPI, No fever, No chills, No sweats, No weight loss, No weakness, No fatigue, No problem reported Eyes: No see HPI, No worsening of vision, No eye pain, No redness, No discharge , No diplopia, No problem reported ENT: No see HPI, No hearing loss, No unusual epistaxis, No nasal symptoms, No sore throat, No tinnitus, No dental problems, No trouble swallowing, No problem reported Respiratory: + see HPI, + cough, No sputum, No wheezing, No shortness of breath , No dyspnea on exertion, No dyspnea at rest, No hemoptysis, No problem reported Cardiac: No see HPI, No chest pain, No orthopnea, No PND, No edema, No claudication, No palpitations, No problem reported Abdomen: No see HPI, No pain, No nausea, No vomiting, No diarrhea, No constipation, No GI bleeding, No problem reported Musculoskeletal: No see HPI, No joint pain, No muscle pain, No swelling, No calf pain, No problem reported Female : No see HPI, No dysuria, No urinary frequency, No hematuria, No incontinence, No abnormal vaginal bleeding, No vaginal discharge, No problem reported Neurologic: No see HPI, No memory loss, No paralysis, No weakness, No numbness/ tingling, No vertigo, No balance problems, No problem reported Psychiatric: No see HPI, No depression symptoms, No anhedonism, No anxiety, No insomnia, No substance abuse, No problem reported Objective Vital Signs Date Time Temp Pulse Resp B/P (MAP) Pulse Ox O2 Delivery O2 Flow Rate FiO2 04/23/17 11:24 77 95 04/23/17 11:20 88 18 94 Room Air 04/23/17 08:00 Room Air 04/23/17 07:16 36.6 83 18 135/78 (97) 92 Room Air 04/23/17 07:03 85 18 95 Room Air 04/22/17 23:50 Room Air 04/22/17 23:38 36.4 76 18 142/82 (102) 94 Room Air 04/22/17 20:30 86 132/71 (91) 04/22/17 19:45 94 Room Air 04/22/17 19:00 85 18 94 Room Air 04/22/17 17:15 94 Room Air 94.0 04/22/17 17:15 36.9 97 22 115/75 (88) 94 Room Air Physical Exam General Appearance: WD/WN, no apparent distress, + thin, + pertinent finding ( chronic ill looking) Eyes: normal inspection, PERRL, EOMI, sclerae normal ENT: normal ENT inspection, hearing grossly normal, pharynx normal Neck: supple, no adenopathy, thyroid normal, no JVD, no carotid bruits, trachea midline Respiratory/Chest: chest non-tender, normal breath sounds, no respiratory distress, no accessory muscle use, + decreased breath sounds, + wheezing (end expiratory wheezing, ) Cardiovascular: regular rate, rhythm, no edema, no gallop, no JVD, no murmur Abdomen: normal bowel sounds, non tender, soft, no organomegaly, no pulsatile mass Extremities: normal range of motion, non-tender, normal inspection, no pedal edema, no calf tenderness, normal capillary refill, pelvis stable Neurologic/Psychiatric: 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, no motor/sensory deficits, alert, normal mood/affect, oriented x 3 Skin: normal color, warm/dry, no rash Lymphatic: no adenopathy Laboratory Results Last 24 Hours Test 04/22/17 19:14 04/23/17 05:58 White Blood Count 11.14 K/uL 10.93 K/uL Red Blood Count 4.21 M/uL 4.04 M/uL Hemoglobin 12.0 g/dL 11.4 g/dL Hematocrit 36.5 % 35.4 % Mean Corpuscular Volume 86.7 fL 87.6 fL Mean Corpuscular Hemoglobin 28.5 pg 28.2 pg Mean Corpuscular Hemoglobin Concent 32.9 g/dl 32.2 g/dl Platelet Count 341 K/uL 350 K/uL Mean Platelet Volume 9.5 fL 9.4 fL Neutrophils (%) (Auto) 95.3 % 95.8 % Lymphocytes (%) (Auto) 2.6 % 3.4 % Monocytes (%) (Auto) 1.6 % 0.6 % Eosinophils (%) (Auto) 0.1 % 0.0 % Basophils (%) (Auto) 0.1 % 0.0 % Neutrophils # (Auto) 10.62 K/uL 10.47 K/uL Lymphocytes # (Auto) 0.29 K/uL 0.37 K/uL Monocytes # (Auto) 0.18 K/uL 0.07 K/uL Eosinophils # (Auto) 0.01 K/uL 0.00 K/uL Basophils # (Auto) 0.01 K/uL 0.00 K/uL RDW Standard Deviation 46.4 fL 46.4 fL RDW Coefficient of Variation 14.5 % 14.5 % Immature Granulocyte % (Auto) 0.3 % 0.2 % Immature Granulocyte # (Auto) 0.03 K/uL 0.02 K/uL Sodium Level 139 mmol/L 137 mmol/L Potassium Level 3.8 mmol/L 4.2 mmol/L Chloride Level 105 mmol/L 104 mmol/L Carbon Dioxide Level 28 mmol/L 25 mmol/L Anion Gap 6.0 mmol/L 8.0 mmol/L Blood Urea Nitrogen 21 mg/dl 20 mg/dl Creatinine 0.84 mg/dl 0.74 mg/dl Est Creatinine Clear Calc Drug Dose 47.7 ml/min 54.1 ml/min Estimated GFR () 78.2 91.2 Estimated GFR (Non- 67.5 78.7 BUN/Creatinine Ratio 25.1 26.8 Random Glucose 146 mg/dl 126 mg/dl Calcium Level 9.0 mg/dl 8.7 mg/dl Assessment and Plan 76yo female admitted on 04/22/2017 b/c copd exac cough, dyspnea, and sputum production despite outpatient Rx with steroids/abx. PMhx of lung cancer of the left lung and COPD per report: he has had increased wheezing as well. Seen in the pulmonary clinic today and admission was recommended. CXR in the clinic earlier in the day showed that a previous LLL pneumonia was improved from the prior CXR but there was increasing nodularity in the left lung (corresponding to her known lung cancer). During my assessment she c/o cough but no dyspnea at rest. COPD with exacerbation - agree with steroids, abx, nebs, incentive spirometry, mucinex, pulmonary toilet. Send sputum cx. known left-sided lung cancer - this was a local recurrence as she was originally treated with a wedge resection at time of diagnosis. CT chest in February 2017 showed the tumor was growing. Certainly if her cancer is progressing this could be contributing to her ongoing pulmonary symptoms and exacerbations. Consider repeat chest CT if she fails to improve with the measures listed in # 1. pulm consult requested Ischemic Cardiomyopathy CAD stable, Continue metoprolol 25 mg QHS, lisinopril 20 mg daily - stable Known compression deformities at T11 and L2 stable, Uses tramadol for pain prn - stable Depression, stable DVT ppx: Lovenox 40 mg Subq, teds, scds CODE STATUS: FULL CODE Disposition: From home, lives with son, discharge when medically stable. Continued [facility] stay due to: multiple IV medications needed Discharge planning: home
[2017-04-23] MEDS: LEVOFLOXACIN / D5W 750 MG in PREMIXED IN D5W 150 ML IV SCH (19:45)
[2017-04-23] MEDS ORDERED: SIMVASTATIN 20 MG TAB PO SCH (21:00)
[2017-04-23] MEDS: METOPROLOL SUCC 25MG EXT REL TAB PO SCH (21:03)
[2017-04-23] MEDS: ENOXAPARIN 40 MG/0.4 ML SYR SQ SCH (21:07)
--- NOTE | 2017-04-23 22:06 | Pulmonary Consultation ---
History General Date of Service: Apr 23, 2017. Stated Complaint: Recent Pneumonia, Dyspnea, Sob HPI The patient is a 76 year old female who presents to [facility] with complaints of Recent Pneumonia, Dyspnea, Sob. The patient's primary care provider is Ruslan Ayon M.D.. Ms. 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 She presented to pulmonary clinic and was seen by Peter Novoa for recent chest infection. She states that her symptoms started about 2-3 days prior to admission after she caught a cold from her son. She was prescribed Levaquin 750 mg to take in 2 doses prior to admission, but her symptoms worsened. On the morning of admission she checked her pulse oximetry and it was about 90% on room air and she normally saturates around 95%. She is not on home oxygen. She denies any fevers or chills but states that she did have episodes of feeling hot. However she had increased cough associated with yellowish sputum. She denies any hemoptysis, night sweats, chest pain, and palpitations. She denies any weight loss or change in appetite. She currently lives at home with her son is physically disabled. She also has a home health assistant director of public works to help her with activities of daily living. She also has a daughter who is disabled and currently in a facility because she is no longer able to care for her. She is able to ambulate with walker to about 50 feet, but noted that she had increased dyspnea on exertion. Her current pulmonary home medications are albuterol nebulizer every 4 hours, Symbicort 160/4.5 2 puffs twice a day, fluticasone allergy nasal spray 1 spray to each nostril twice a day, Levaquin 750 mg by mouth daily, prednisone 20 mg by mouth daily as well as when necessary ipratropium bromide every 6 hours when necessary for shortness of breath and wheezing. A chest x-ray was ordered and showed increase in nodularity of left mid lung with improvement of infiltrate in left lower lobe. She was admitted to telemetry for COPD exacerbation secondary to left lower lobe pneumonia. She started on IV Solu-Medrol 60 mg every 8 hours, Levaquin IV , 2 every 6 hours and every 2 hours when necessary for shortness of breath. On my evaluation today patient states that shes feeling improved. She was able to walk around the halls with a walker. She felt minimal dyspnea upon arrival back to her room. Her cough is improving and is less productive. She states that she would like to be discharged by tomorrow evening. Vital signs within the last 24 hours show MAXIMUM TEMPERATURE of 37.2, blood pressure 135/78-150/84, pulse 77-86 respiratory rate of 18 pulse ox 92-97% on room air. Of note patient had bronchoscopy done on 03/04/[address] Odell. Bronchial washings and brushings of the lingula showed benign squamous and bronchial epithelial cells, pulmonary macrophages and neutrophils with no malignant cells seen. Fungal cultures were positive for Neris albicans. Acid-fast stain and culture showed no acid-fast bacilli isolated. Gram stain showed moderate normal laura. Lingula endobronchial biopsy was negative for malignancy. She also has history of bronchoscopy done in 01/28/2016 which grew Mycobacterium avium complex as well as Mycobacterium DUSTIN AE from AFB culture of left upper lobe bronchial washings. Bronchoscopy done on 12/31/2007 left lower lobe washings grew Aspergillus for Candida and Neris albicans. Historian: patient Onset: other (2 days prior to admission) Severity: moderate Complaint Status: improved Review of Systems Constitutional: reports: malaise Eyes: reports: as stated in HPI ENT: reports: as stated in HPI Cardiovascular: reports: as stated in HPI Respiratory: reports: as stated in HPI, cough, shortness of breath, wheezing, sputum production, BLACK, denies: cyanosis, hemoptysis Gastrointestinal: reports: as stated in HPI Genitourinary - Female: reports: as stated in HPI Musculoskeletal: reports: as stated in HPI Integumentary: reports: as stated in HPI Neurologic: reports: as stated in HPI Hematologic / Lymphatic: as stated in HPI Allergic / Immunologic: as stated in HPI All Other Symptoms All Other Systems: Reviewed and Negative Past Medical History Past Medical History: 1. Acute bronchitis 2. Acute sinusitis 3. CAD in [place] artery 4. Chronic obstructive pulmonary disease 5. Chronic rhinitis 6. Compression fracture of lumbar vertebra 7. Depression 8. Elevated sedimentation rate 9. Encounter for current long-term use of other medications 10. Exposure to influenza 11. Hand pain, right 12. Hypertensive heart disease 13. Ischemic cardiomyopathy 14. Loss of appetite 15. Malignant neoplasm of upper lobe of left lung 16. Mycobacterium avium infection 17. Non-small cell lung cancer 18. Pre-operative cardiovascular examination 19. Shortness of breath 20. Solitary pulmonary nodule Past Surgical History: 1. History of Appendectomy 2. History of Biopsy Lymph Node 3. History of Cardiac Cath Procedure Summary 4. History of Computer-Assisted Image-Guided Navigation During Flexible Bronchoscopy 5. History of Hysterectomy 6. History of Thoracoscopy With Therapeutic Wedge Resection Of Lung Family History 1. Family history of Colon cancer 2. Family history of CAD (coronary artery disease) 3. Family history of asthma 4. Family history of cerebrovascular accident (CVA) 5. Family history of colon cancer Social History Former smoker, quit in 2015. Denies alcohol or illicit drug use. Marital History - , lives with son. 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 Hx Tobacco Use In Past Year?: No Smoking Status: Former Smoker Occupational Status: unemployed Immunizations History of Influenza Vaccine: Yes History of Tetanus Vaccine?: YES- NOT SURE WITHIN 2 YEARS History of Pneumococcal: Yes Pneumococcal Date: Jun 30, 2009 History of Hepatitis B Vaccine: Unknown History of MDRO History of MDRO: No Allergies Coded Allergies: No Known Allergies (Verified , 03/04/17) Current Medications Reported Home Medications Medications Dose Route/Sig Max Daily Dose Days Date Category Dose Instructions Symbicort 160/4.5 Inhaler (Budesonide/Formoterol Fumarate) Aero 2 Puffs INH BID 04/22/17 Reported Ultram (Tramadol HCl) 50 Mg Tab 50 Mg PO Q6H PRN 04/22/17 Reported Albuterol Sulfate 1.25 Mg/3 Ml Neb 1 Vial NEB Q4 5 04/22/17 Reported Allergy Nasal [place] 24 Ho (Fluticasone Propionate (Nasal)) 50 Mcg/Act Spr 1 [place] NA BID 04/22/17 Reported Prednisone 20 Mg Tab 20 Mg PO DAILY 04/22/17 Reported Levaquin (Levofloxacin) 750 Mg Tab 750 Mg PO DAILY 7 04/22/17 Reported Start on 04/20 Pepcid (Famotidine) 20 Mg Tab 20 Mg PO BID 01/02/17 Reported Vitamin D 46790 Unit (Ergocalciferol) 50,000 Unit Cap 1 Cap PO WK 28 01/02/17 Reported Ipratropium [place] 0.5 Mg/2.5 Ml Nebu 1 Vial NEB QID PRN 30 01/28/16 Rx Toprol Xl (Metoprolol Succinate) 25 Mg Tabcr 25 Mg PO HS 01/21/16 Reported Aspirin Ec (Aspirin) 81 Mg Tab 81 Mg PO QAM 01/17/15 Reported Lisinopril 10 Mg Tab 20 Mg PO QAM 01/17/15 Reported Simvastatin 20 Mg Tab 20 Mg PO Q2D 01/17/15 Reported Physical Physical Exam Vital Signs: Date Time Temp Pulse Resp B/P (MAP) Pulse Ox O2 Delivery O2 Flow Rate FiO2 04/23/17 16:00 Room Air 04/23/17 15:55 86 18 97 Room Air 04/23/17 15:00 37.2 95 18 150/84 (106) 93 Room Air 04/23/17 11:24 77 95 04/23/17 11:20 88 18 94 Room Air 04/23/17 08:00 Room Air 04/23/17 07:16 36.6 83 18 135/78 (97) 92 Room Air 04/23/17 07:03 85 18 95 Room Air 04/22/17 23:50 Room Air 04/22/17 23:38 36.4 76 18 142/82 (102) 94 Room Air 04/22/17 20:30 86 132/71 (91) 04/22/17 19:45 94 Room Air General Appearance: WELL-APPEARING, WD/WN, NO APPARENT DISTRESS Eyes: PERRLA, NO DISCHARGE, EOMI, SCLERAE NORMAL, CONJUNCTIVAE NORMAL ENT: NORMAL MOUTH EXAM, NORMAL THROAT EXAM (dentures in place) Neck: NORMAL RANGE OF MOTION, NO TENDERNESS, TRACHEA MIDLINE, NO STRIDOR Respiratory: other (focal wheezing in LLL, with coarse crackles. Good air entry on right lung all lung caceres.) Cardiovasular: REGULAR RATE/RHYTHM, NORMAL S1S2 Abdomen: NON TENDER, NORMAL BOWEL SOUNDS, NO REBOUND, NO MASSES Back: NO MIDLINE TENDERNESS, NO CVA TENDERNESS Upper Extremities: NO EDEMA Lower Extremities: NO EDEMA Pulses: dorsalis pedis (R) (2+), dorsalis pedis (L) (2+) Neuro: ALERT, ORIENTED x 3, NORMAL MOTOR EXAM, NORMAL SENSATION, NORMAL SPEECH Reflexes: patellar (R) (3+), patellar (L) (3+) Psychiatric: NORMAL AFFECT, NO SUICIDAL IDEATION, CONTRACTS FOR SAFETY Diagnostics Labs Results Past 24 Hours Test 04/23/17 05:58 Range/Units White Blood Count 10.93 4.8-10.8 K/uL Red Blood Count 4.04 4.2-5.4 M/uL Hemoglobin 11.4 12.0-16.0 g/dL Hematocrit 35.4 37-47 % Mean Corpuscular Volume 87.6 80-100 fL Mean Corpuscular Hemoglobin 28.2 25-34 pg Mean Corpuscular Hemoglobin Concent 32.2 32-36 g/dl Platelet Count 350 130-400 K/uL Mean Platelet Volume 9.4 7.4-10.4 fL Neutrophils (%) (Auto) 95.8 % Lymphocytes (%) (Auto) 3.4 % Monocytes (%) (Auto) 0.6 % Eosinophils (%) (Auto) 0.0 % Basophils (%) (Auto) 0.0 % Neutrophils # (Auto) 10.47 1.4-6.5 K/uL Lymphocytes # (Auto) 0.37 1.2-3.4 K/uL Monocytes # (Auto) 0.07 0.11-0.59 K/uL Eosinophils # (Auto) 0.00 0-0.5 K/uL Basophils # (Auto) 0.00 0-0.2 K/uL RDW Standard Deviation 46.4 36.4-46.3 fL RDW Coefficient of Variation 14.5 11.5-14.5 % Immature Granulocyte % (Auto) 0.2 % Immature Granulocyte # (Auto) 0.02 0.00-0.02 K/uL Sodium Level 137 136-145 mmol/L Potassium Level 4.2 3.5-5.1 mmol/L Chloride Level 104 98-107 mmol/L Carbon Dioxide Level 25 21-32 mmol/L Anion Gap 8.0 3-11 mmol/L Blood Urea Nitrogen 20 7-18 mg/dl Creatinine 0.74 0.60-1.20 mg/dl Est Creatinine Clear Calc Drug Dose 54.1 ml/min Estimated GFR () 91.2 Estimated GFR (Non- 78.7 BUN/Creatinine Ratio 26.8 10-20 Random Glucose 126 70-99 mg/dl Calcium Level 8.7 8.5-10.1 mg/dl Diagnostic Radiology CXR 04/22/2017 FINDINGS: Improved infiltrative change left base. Solitary pulmonary nodule left midlung perhaps slightly increased in volume. Right hemithoracic region is clear. IMPRESSION: Mild increase in nodularity left midlung. Improved infiltrate left base. CT chest 02/10/2017 FINDINGS: Severe emphysema is noted. The patient is status post left upper lobe wedge resection. A 1.9 x 1.9 cm irregular nodule adjacent to the resection margin has increased in size since exam of November 17, 2016 when it measured 1.8 x 1.6 cm. Linear opacities within the lungs reflect atelectasis or scarring. Several left supraclavicular lymph nodes have moderately increased in size since prior chest CT and PET/CT. An index left supraclavicular node shown image 12 of 52 measures 1.3 cm. Mediastinal and left hilar nodes have increased in size as well. A precarinal node measures 3.2 x 2 cm. It previously measured 1.7 x 1.4 cm. A prevascular node measures 1.6 cm. It previously measured 1 cm. The heart is mildly enlarged. There is no pericardial effusion. There is no pneumothorax or pleural effusion. Bony thorax and upper abdomen are unremarkable. IMPRESSION: Findings consistent with progression of recurrent malignancy. Mild interval increase in size of an irregular 1.9 cm nodule adjacent to the resection margin which reflects recurrent neoplasm. Moderate increase in left supraclavicular and mediastinal lymphadenopathy. PET CT Chest 11/26/2016 IMPRESSION: 1. Interval development of mediastinal, left hilar, and left supraclavicular FDG avid lymphadenopathy consistent with metastatic disease. 2. A 2.6 x 1.7 cm left upper lobe mass adjacent to the suture line which demonstrates intense FDG uptake. This is consistent with recurrent/residual neoplasm. 3. A 1.3 cm ill-defined subcutaneous soft tissue focus within the right posterior back. This demonstrates abnormal FDG uptake. A metastatic focus at this location is considered less likely but not entirely excluded. This bears watching on future examinations. Impression Assessment and Plan LLL Pneumonia COPD Exacerbation Recurrent NSCLC of NOR[place] On review of CT images, there maybe a component of post obstructive pneumonia. LLL pneumonia appears to be improved on chest xray done on day of admission. Despite this, I feel this pneumonia may have precipitated a COPD exacerbation. She has responded well to current treatment of IV corticosteroids, IV antibiotics, inhaled corticosteroids, nebulizers and cough suppressant. She using walker to ambulate and has decreased dyspnea on exertion, cough and sputum production. Overall I think that her clinical status in improving. She requires no oxygen supplementation at this time. I would continue with a 7 day course of antibiotics. Continue with a slow taper of corticosteroids over 2 weeks. She should be discharged home on home respiratory medications and follow up with Dr. Odell/ Peter Newton. In regards, recurrence of NORMAN NSCLC she was seen my hematology oncology in January 2017 and there was discussion for starting chemotherapy. She should follow up with Oncology upon discharge. I appreciate the consult and involving me in the care of your patient.
[2017-04-23] MEDS: hydrOXYzine HCL 10 MG TAB PO PRN (22:23)
[2017-04-24] VITALS (8 sets, daily range): BP systolic 134–160; BP diastolic 61–82; PULSE 61–98; TEMP 36.6–37; O2SAT 94–99
[2017-04-24] MEDS: METHYLPREDNISOLONE IV 60 MG in SYRINGE 0 ML IV SCH (04:12)
[2017-04-24 07:35] LABS: BASO % 0.1 %; BASO ABS # 0.01 K/uL (0-0.2); COMPLETE YES; HEMATOCRIT 35.3 % (37-47); IG% 0.2 %; LYMPH % 2.3 %; LYMPH ABS # 0.37 K/uL (1.2-3.4); MEAN CELL VOLUME 86.1 fL (80-100); MEAN CORPUSCULAR HEMOGLOBIN 28.3 pg (25-34); MEAN CORPUSCULAR HGB CONC 32.9 g/dl (32-36); MEAN PLATELET VOLUME 9.5 fL (7.4-10.4); NEUT % 94.4 %; PLATELET COUNT 357 K/uL (130-400); WHITE BLOOD COUNT 16.04 K/uL (4.8-10.8)
[2017-04-24] MEDS: ALBUT/IPRATROP 3MG/0.5MG NEB 3 ML VIAL INH SCH ×4 (07:46→18:58)
[2017-04-24] MEDS: BUDESONIDE/FORMOTEROL FUMARATE 160/4.5 60 PUFFS/INHALER INH SCH ×2 (07:54→20:30)
[2017-04-24] MEDS: FLUTICASONE PROPIONATE NA SPR 16 GM BTL SCH ×2 (07:55→20:30)
[2017-04-24] MEDS: GUAIFENESIN 600 MG TABCR PO SCH ×2 (07:56→20:31)
[2017-04-24] MEDS: FAMOTIDINE 20 MG TAB PO SCH ×2 (07:56→20:31)
[2017-04-24] MEDS: ASPIRIN 81 MG ECTAB PO SCH (07:56)
[2017-04-24] MEDS: LISINOPRIL 20 MG TAB PO SCH (07:56)
[2017-04-24 08:09] LABS: BUN/CREATININE RATIO 26.9 (10-20); CALCIUM 9.1 mg/dl (8.5-10.1); CREATININE 0.9 mg/dl (0.60-1.20); MAGNESIUM 2.3 mg/dl (1.8-2.4)
--- NOTE | 2017-04-24 09:51 | Progress Note ---
Subjective Date of Service: Apr 24, 2017. Subjective Pt evaluation today including: conversation w/ patient, physical exam, chart review, lab review, review of studies, conversation w/ business sales consultant, review of inpatient medication list feeling better, less cough, no f/c , no chest pain , no sputum Review of Systems Constitutional: + fatigue, No fever, No chills, No sweats, No weight loss, No weakness, No problem reported Eyes: No worsening of vision, No eye pain, No redness, No discharge, No diplopia ENT: No hearing loss, No unusual epistaxis, No nasal symptoms, No sore throat, No tinnitus, No dental problems, No trouble swallowing Respiratory: + cough, No sputum, No wheezing, No shortness of breath, No dyspnea on exertion, No dyspnea at rest, No hemoptysis Cardiac: No chest pain, No orthopnea, No PND, No edema, No claudication, No palpitations Abdomen: No pain, No nausea, No vomiting, No diarrhea, No constipation Musculoskeletal: No joint pain, No muscle pain, No swelling, No calf pain Female : No dysuria, No urinary frequency, No hematuria, No incontinence, No abnormal vaginal bleeding, No vaginal discharge Neurologic: No memory loss, No paralysis, No weakness, No numbness/tingling, No vertigo, No balance problems Psychiatric: No depression symptoms, No anhedonism, No anxiety, No insomnia, No substance abuse Heme: No abnormal bleeding/bruising, No clotting problems, No swollen lymph nodes, No night sweats Endo: No fatigue, No excessive thirst, No excessive urination Skin: No rash, No itch, No new/changing skin lesions, No color change, No bleeding Objective Vital Signs Date Time Temp Pulse Resp B/P (MAP) Pulse Ox O2 Delivery O2 Flow Rate FiO2 04/24/17 07:46 63 18 97 Room Air 04/24/17 07:17 36.8 67 18 160/78 (105) 94 Room Air 04/24/17 01:06 36.6 61 18 137/72 (93) 99 Room Air 04/24/17 00:00 Room Air 04/23/17 20:00 Room Air 04/23/17 19:30 94 18 95 Room Air 04/23/17 16:00 Room Air 04/23/17 15:55 86 18 97 Room Air 04/23/17 15:00 37.2 95 18 150/84 (106) 93 Room Air 04/23/17 11:24 77 95 04/23/17 11:20 88 18 94 Room Air Physical Exam General Appearance: WD/WN, no apparent distress, + pertinent finding (mild frail looking) Eyes: normal inspection, PERRL, EOMI, sclerae normal ENT: normal ENT inspection, hearing grossly normal, pharynx normal Neck: supple, no adenopathy, thyroid normal, no JVD, no carotid bruits, trachea midline Respiratory/Chest: chest non-tender, normal breath sounds, no respiratory distress, no accessory muscle use, + decreased breath sounds, + wheezing (mild sparatic) Cardiovascular: regular rate, rhythm, no edema, no gallop, no JVD, no murmur Abdomen: normal bowel sounds, non tender, soft, no organomegaly, no pulsatile mass Extremities: normal range of motion, non-tender, normal inspection, no pedal edema, no calf tenderness, normal capillary refill, pelvis stable Neurologic/Psychiatric: boiler house inspector II-XII nml as tested, no motor/sensory deficits, alert, normal mood/affect, oriented x 3 Skin: normal color, warm/dry, no rash Lymphatic: no adenopathy Laboratory Results Last 24 Hours Test 04/24/17 07:10 White Blood Count 16.04 K/uL Red Blood Count 4.10 M/uL Hemoglobin 11.6 g/dL Hematocrit 35.3 % Mean Corpuscular Volume 86.1 fL Mean Corpuscular Hemoglobin 28.3 pg Mean Corpuscular Hemoglobin Concent 32.9 g/dl Platelet Count 357 K/uL Mean Platelet Volume 9.5 fL Neutrophils (%) (Auto) 94.4 % Lymphocytes (%) (Auto) 2.3 % Monocytes (%) (Auto) 3.0 % Eosinophils (%) (Auto) 0.0 % Basophils (%) (Auto) 0.1 % Neutrophils # (Auto) 15.14 K/uL Lymphocytes # (Auto) 0.37 K/uL Monocytes # (Auto) 0.48 K/uL Eosinophils # (Auto) 0.00 K/uL Basophils # (Auto) 0.01 K/uL RDW Standard Deviation 45.7 fL RDW Coefficient of Variation 14.6 % Immature Granulocyte % (Auto) 0.2 % Immature Granulocyte # (Auto) 0.04 K/uL Sodium Level 137 mmol/L Potassium Level 4.0 mmol/L Chloride Level 104 mmol/L Carbon Dioxide Level 26 mmol/L Anion Gap 7.0 mmol/L Blood Urea Nitrogen 24 mg/dl Creatinine 0.90 mg/dl Est Creatinine Clear Calc Drug Dose 44.5 ml/min Estimated GFR () 72.0 Estimated GFR (Non- 62.1 BUN/Creatinine Ratio 26.9 Random Glucose 118 mg/dl Calcium Level 9.1 mg/dl Magnesium Level 2.3 mg/dl Assessment and Plan 76yo female admitted on 04/22/2017 b/c copd exac cough, dyspnea, and sputum production despite outpatient Rx with steroids/abx. PMhx of lung cancer of the left lung and COPD per report: he has had increased wheezing as well. Seen in the pulmonary clinic today and admission was recommended. CXR in the clinic earlier in the day showed that a previous LLL pneumonia was improved from the prior CXR but there was increasing nodularity in the left lung (corresponding to her known lung cancer). During my assessment she c/o cough but no dyspnea at rest. COPD with exacerbation, stable/improving cont steroids, abx, nebs, incentive spirometry, pulm recs :I would continue with a 7 day course of antibiotics, and a slow taper of corticosteroids over 2 weeks, and should be discharged home on home respiratory medications and follow up with Dr. Odell/ Peter Newton. recurrence of [place] NSCLC CT chest in February 2017 showed the tumor was growing. pulm consult requested, need to follow up pt has been seen by hematology oncology in January 2017 and there was discussion for starting chemotherapy. today patient told me that he decides " not going to do chemo, and no plan to follow up with oncologist', I advice pt that continue follow up with pcp and pulm in this aspect Ischemic Cardiomyopathy CAD stable, Continue metoprolol 25 mg QHS, lisinopril 20 mg daily - stable Known compression deformities at T11 and L2 stable, Uses tramadol for pain prn - stable Depression, stable DVT ppx: Lovenox 40 mg Subq, teds, scds CODE STATUS: FULL CODE possible discharge in day 1-2 , increase activity, Continued [facility] stay due to: multiple IV medications needed Discharge planning: home
[2017-04-24] MEDS: LEVOFLOXACIN 750 MG TAB PO SCH (16:38)
[2017-04-24] MEDS: METHYLPREDNISOLONE IV 40 MG in SYRINGE 0 ML IV SCH (20:30)
[2017-04-24] MEDS: METOPROLOL SUCC 25MG EXT REL TAB PO SCH (20:32)
[2017-04-24] MEDS: ENOXAPARIN 40 MG/0.4 ML SYR SQ SCH (20:32)
[2017-04-24] MEDS: hydrOXYzine HCL 10 MG TAB PO PRN (20:36)
[2017-04-25] VITALS: O2SAT 96
[2017-04-25 00:09] VITALS: BP 129/84; PULSE 58; TEMP 36.3; O2SAT 96
[2017-04-25] MEDS: ALBUT/IPRATROP 3MG/0.5MG NEB 3 ML VIAL INH SCH ×2 (06:52→11:06)
[2017-04-25 06:53] VITALS: PULSE 67; O2SAT 97
[2017-04-25 07:10] VITALS: BP 149/83; PULSE 64; TEMP 36.4; O2SAT 100
[2017-04-25 07:54] LABS: COMPLETE YES; HEMATOCRIT 36.4 % (37-47); IG% 0.3 %; LYMPH % 4.6 %; LYMPH ABS # 0.54 K/uL (1.2-3.4); MEAN CELL VOLUME 86.7 fL (80-100); MEAN CORPUSCULAR HEMOGLOBIN 27.6 pg (25-34); MEAN CORPUSCULAR HGB CONC 31.9 g/dl (32-36); MEAN PLATELET VOLUME 9.4 fL (7.4-10.4); MONO % 4.5 %; NEUT % 90.6 %; PLATELET COUNT 359 K/uL (130-400); WHITE BLOOD COUNT 11.63 K/uL (4.8-10.8)
[2017-04-25 08:28] LABS: CREATININE 0.94 mg/dl (0.60-1.20)
[2017-04-25] MEDS: METHYLPREDNISOLONE IV 40 MG in SYRINGE 0 ML IV SCH (09:11)
[2017-04-25] MEDS: GUAIFENESIN 600 MG TABCR PO SCH (09:12)
[2017-04-25] MEDS: FLUTICASONE PROPIONATE NA SPR 16 GM BTL SCH (09:12)
[2017-04-25] MEDS: FAMOTIDINE 20 MG TAB PO SCH (09:12)
[2017-04-25] MEDS: BUDESONIDE/FORMOTEROL FUMARATE 160/4.5 60 PUFFS/INHALER INH SCH (09:12)
[2017-04-25] MEDS: ASPIRIN 81 MG ECTAB PO SCH (09:12)
[2017-04-25] MEDS: LISINOPRIL 20 MG TAB PO SCH (09:12)
--- NOTE | 2017-04-25 09:20 | Discharge Instructions ---
Discharge Instructions Date of Service Apr 25, 2017. Admission Reason for Admission: Recent Pneumonia, Dyspnea, Sob Discharge Discharge Diagnosis / Problem: COPD exacerbation Discharge Goals Goal(s): Decrease discomfort, Improve function, Learn about illness, Diagnostic testing, Therapeutic intervention, Prevent Disease Progression, Specific goals Activity Recommendations Activity Limitations: resume your previous activity . Instructions / Follow-Up Instructions / Follow-Up you have COPD with exacerbation, You have been on Levaquin which was Started on 04/20/2017, totally need 7 days, you just only need 1 dose more tomorrow you was on prednisone at home, I recommend you tapering dose of this medicine after discharge to home: Prednisone 40mg po bid for 3 days, then 20 mg by mouth twice a day for 3 days, Then 20 mg by mouth daily for 3 days, then 10 mg by mouth daily for 3 days , then stop stable/improving cont steroids, abx, nebs, incentive spirometry, pulm recs :I would continue with a 7 day course of antibiotics, and a slow taper of corticosteroids over 2 weeks, and should be discharged home on home respiratory medications and follow up with Dr. Odell/ Peter Newton. You have recurrence of [place] NSCLC You told me that decides " not going to do chemo, and no plan to follow up with oncologist', I advice you to continue follow up with pcp and pulm in this aspect - you need to follow up with your primary care physician in 1 week, - take medication as instructed, never overdose or any misuse, or take with alcohol, because misuse of medicine may cause organ damage or , call your primary care physician if have questions of medicaitons. - call your primary care physician OR go to local emergency room if has any fever/chill, chest pain, shortness of breathing, nausea/vomiting/abdominal pain , facial droop/slurry speech/local weakness, or if has any questions. - fall precaution - diet as instructed - you need to follow up with your subspecialist - you should understand that it is important to follow up the above instruction , and "not following the above instruction" may cause delayed or missed care of your medical conditions which may cause permanent organ damage and even . Current Hospital Diet Patient's current hospital diet: AHA Diet (Heart Healthy) Discharge Diet Recommended Diet: AHA Diet (Heart Healthy) Procedures Procedures Performed: No Pending Studies Studies pending at discharge: no Medical Emergencies . Who to Call and When: Medical Emergencies: If at any time you feel your situation is an emergency, please call 911 immediately. . Non-Emergent Contact Non-Emergency issues call your: Primary Care Provider, Rolloff Truck Driver . . "Provider Documentation" section prepared by Ruslan Edmondson. . VTE Core Measure Inpt VTE Proph given/why not?: Mandi Baxter, BELÉN's
[2017-04-25 11:07] VITALS: PULSE 77; O2SAT 94
[2017-04-25] MEDS: LEVOFLOXACIN 750 MG TAB PO SCH (11:39)
[2017-04-25 12:34] VITALS: BP 149/83; PULSE 77; TEMP 36.4; O2SAT 94
--- NOTE | 2017-04-25 15:47 | Discharge Summary ---
Discharge Summary Date of Service Apr 25, 2017. Discharge Summary Admission Date: Apr 22, 2017 at 16:57 Discharge Date: Apr 25, 2017 Principal Diagnosis: COPD with exacerbation, Problems/Secondary Diagnoses: recurrence of [place]MAN NSCLC Immunizations: Have You Had Influenza Vaccine: Yes History of Tetanus Vaccine?: YES- NOT SURE WITHIN 2 YEARS History of Pneumococcal: Yes Pneumococcal Date: Jun 30, 2009 History of Hepatitis B Vaccine: Unknown Procedures: No Consultations: Government Program Manager Medication Reconciliation Continued Medications: Albuterol Sulfate (Albuterol Sulfate) 1.25 Mg/3 Ml Neb 1 VIAL NEB Q4 for 5 Days, #75 ML Aspirin (Aspirin Ec) 81 Mg Tab 81 MG PO QAM Budesonide/Formoterol Fumarate (Symbicort 160/4.5 Inhaler ) Aero 2 PUFFS INH BID, INHALER Ergocalciferol (Vitamin D 43553 Unit) 50,000 Unit Cap 1 CAP PO WK for 28 Days, #4 CAP 5 Refills Famotidine (Pepcid) 20 Mg Tab 20 MG PO BID, TAB Fluticasone Propionate (Nasal) (Allergy Nasal [place] 24 Ho) 50 Mcg/Act Spr 1 SPRAY NA BID Ipratropium [place] (Ipratropium [place]) 0.5 Mg/2.5 Ml Nebu 1 VIAL NEB QID PRN for SOB/Wheezing for 30 Days, #300 ML 3 Refills Levofloxacin (Levaquin) 750 Mg Tab 750 MG PO DAILY for 7 Days, #7 TAB Start on 04/20/2017, totally need 7 days, you just only need 1 dose more tomorrow Lisinopril (Lisinopril) 10 Mg Tab 20 MG PO QAM Metoprolol Succinate (Toprol Xl) 25 Mg Tabcr 25 MG PO HS, #30 TAB Prednisone (Prednisone) 20 Mg Tab 20 MG PO DAILY, #30 TAB you was on prednisone at home, I recommend you tapering dose of this medicine after discharge to home: 40mg po bid for 3 days, then 20 mg by mouth twice a day for 3 days, Then 20 mg by mouth daily for 3 days, then 10 mg by mouth daily for 3 days, then stop Simvastatin (Simvastatin) 20 Mg Tab 20 MG PO Q2D Tramadol (Ultram) 50 Mg Tab 50 MG PO Q6H PRN for Pain, TAB Discharge Exam Doing okay, no more cough or difficulty breathing, no chest pain Review of Systems: Constitutional: No fever, No chills, No sweats, No weight loss, No weakness , No fatigue, No problem reported Eyes: No worsening of vision, No eye pain, No redness, No discharge, No diplopia, No problem reported ENT: No hearing loss, No unusual epistaxis, No nasal symptoms, No sore throat, No tinnitus, No dental problems, No trouble swallowing, No problem reported Respiratory: No cough, No sputum, No wheezing, No shortness of breath, No dyspnea at rest, No hemoptysis, No problem reported Abdomen: No pain, No nausea, No vomiting, No diarrhea, No constipation, No GI bleeding, No problem reported Musculoskeletal: No joint pain, No muscle pain, No swelling, No calf pain, No problem reported Genitourinary - Female: No dysuria, No urinary frequency, No urinary urgency , No urinary incontinence, No urinary retention, No hematuria, No dysmenorrhea, No menorrhagia, No metrorrhagia, No rash, No vaginal bleeding, No vaginal discharge, No vaginal itching, No vulvodynia, No , No problem reported Neurologic: No memory loss, No paralysis, No weakness, No numbness/tingling , No vertigo, No balance problems, No problem reported Psychiatric: No depression symptoms, No anhedonism, No anxiety, No insomnia , No substance abuse, No problem reported Endocrine: No fatigue, No excessive thirst, No excessive urination, No problem reported Hematologic / Lymphatic: No abnormal bleeding/bruising, No clotting problems , No swollen lymph nodes, No night sweats, No problem reported Physical Exam: General Appearance: WD/WN, + thin, + pertinent finding (frail) ENT: normal ENT inspection, hearing grossly normal, TMs normal, pharynx normal Neck: supple, no adenopathy, thyroid normal Respiratory/Chest: chest non-tender, + decreased breath sounds, + wheezing ( occasional) Cardiovascular: regular rate, rhythm, no edema, no gallop, no JVD, no murmur Abdomen / GI: normal bowel sounds, non tender, soft, no organomegaly, no pulsatile mass Extremities: normal inspection, no calf tenderness, normal capillary refill Neurologic/Psychiatric: 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 PMhx of lung cancer of the left lung and COPD per report: he has had increased wheezing as well. Seen in the pulmonary clinic today and admission was recommended. CXR in the clinic earlier in the day showed that a previous LLL pneumonia was improved from the prior CXR but there was increasing nodularity in the left lung (corresponding to her known lung cancer). During my assessment she c/o cough but no dyspnea at rest. COPD with exacerbation, stable/improving cont steroids, abx, nebs, incentive spirometry, pulm recs :I would continue with a 7 day course of antibiotics, and a slow taper of corticosteroids over 2 weeks, and should be discharged home on home respiratory medications and follow up with Dr. Odell/ Peter [facility]. recurrence of [place] NSCLC CT chest in February 2017 showed the tumor was growing. pulm consult requested, need to follow up pt has been seen by hematology oncology in January 2017 and there was discussion for starting chemotherapy. today patient told me that he decides " not going to do chemo, and no plan to follow up with oncologist', I advice pt that continue follow up with pcp and pulm in this aspect Ischemic Cardiomyopathy CAD stable, Continue metoprolol 25 mg QHS, lisinopril 20 mg daily - stable Known compression deformities at T11 and L2 stable, Uses tramadol for pain prn - stable Depression, stable DVT ppx: Lovenox 40 mg Subq, teds, scds CODE STATUS: FULL CODE Discussed with patient about discharge plan, because the underlined medical conditions, will be in high risk of readmission, I encouraged patient to follow- up with PCP and specialist as instructed, call PCP if have any questions Instructions / Follow-Up you have COPD with exacerbation, You have been on Levaquin which was Started on 04/20/2017, totally need 7 days, you just only need 1 dose more tomorrow you was on prednisone at home, I recommend you tapering dose of this medicine after discharge to home: Prednisone 40mg po bid for 3 days, then 20 mg by mouth twice a day for 3 days, Then 20 mg by mouth daily for 3 days, then 10 mg by mouth daily for 3 days , then stop stable/improving cont steroids, abx, nebs, incentive spirometry, pulm recs :I would continue with a 7 day course of antibiotics, and a slow taper of corticosteroids over 2 weeks, and should be discharged home on home respiratory medications and follow up with Dr. Odell/ Peter [facility]. You have recurrence of [facility]MAN NSCLC You told me that decides " not going to do chemo, and no plan to follow up with oncologist', I advice you to continue follow up with pcp and pulm in this aspect - you need to follow up with your primary care physician in 1 week, - take medication as instructed, never overdose or any misuse, or take with alcohol, because misuse of medicine may cause organ damage or , call your primary care physician if have questions of medicaitons. - call your primary care physician OR go to local emergency room if has any fever/chill, chest pain, shortness of breathing, nausea/vomiting/abdominal pain , facial droop/slurry speech/local weakness, or if has any questions. - fall precaution - diet as instructed - you need to follow up with your subspecialist - you should understand that it is important to follow up the above instruction , and "not following the above instruction" may cause delayed or missed care of your medical conditions which may cause permanent organ damage and even . Total Time Spent: Greater than 30 minutes This includes examination of the patient, discharge planning, medication reconciliation, and communication with other providers. Discharge Instructions Please refer to the electronic Patient Visit Report (Discharge Instructions) for additional information. Additional Copies To Ruslan Ayon M.D.; Robbie Odell M.D.
== END 2017-04-25 13:09 | disposition home or self-care (01) | DRG 190 ==
LOC: C.MS2W 16:57
PROVIDERS: ADMIT Internal Medicine; ATTEND Hospitalist
DX: J44.1 Chronic obstructive pulmonary disease with (acute) exacerbation (principal); J18.9 Pneumonia, unspecified organism; C34.12 Malignant neoplasm of upper lobe, left bronchus or lung; M48.55XA Collapsed vertebra, not elsewhere classified, thoracolumbar region, initial encounter for fracture; F32.9 Major depressive disorder, single episode, unspecified; I25.5 Ischemic cardiomyopathy; Z79.82 Long term (current) use of aspirin; Z79.52 Long term (current) use of systemic steroids; Z79.899 Other long term (current) drug therapy; Z87.891 Personal history of nicotine dependence; Z80.0 Family history of malignant neoplasm of digestive organs; J44.0 Chronic obstructive pulmonary disease with (acute) lower respiratory infection; J20.9 Acute bronchitis, unspecified

== ENCOUNTER → 2017-04-22 | Outpatient (CLI) | payer OTHER, BC ==
[~2017-04-22] MED LIST changes: +ALBU1.257 NEB; +DXY100 PO; +FLUT50SP45; +LEVO-459 PO; +LEVO1TAB35 PO; +PRD10 PO; +PRED20TA PO; +SYMIN160 INH; +TRAM-10 PO
--- NOTE | 2017-04-22 14:19 | DIAGNOSTIC IMAGING REPORT ---
CHEST 2 VIEWS ROUTINE CLINICAL HISTORY: J20.9 Acute [id number] dyspnea COMPARISON STUDY: 03/05/2017 FINDINGS: Improved infiltrative change left base. Solitary pulmonary nodule left midlung perhaps slightly increased in volume. Right hemithoracic region is clear. IMPRESSION: Mild increase in nodularity left midlung. Improved infiltrate left base. The above report was generated using voice recognition software. It may contain grammatical, syntax or spelling errors. Electronically signed by: Joshua Villalpando M.D. 04/22/2017 2:18 PM Dictated Date/Time: 04/22/2017 2:14 PM
== END | disposition home or self-care (01) ==
LOC: C.RAD1850 13:59
PROVIDERS: ATTEND Physician Assistant
DX: J20.9 Acute bronchitis, unspecified (principal)

== ENCOUNTER → 2017-05-27 | Outpatient (CLI) | payer OTHER, BC ==
[~2017-05-27] MED LIST changes: +ALBU1.257 NEB; -CLB/200 PO; -DXY100 PO; +FLUT50SP45; -LEVO-459 PO; +LEVO1TAB35 PO; -MTR400 PO; -PRD10 PO; +PRED20TA PO; +SYMIN160 INH; +TRAM-10 PO
--- NOTE | 2017-05-27 12:43 | DIAGNOSTIC IMAGING REPORT ---
CT SCAN OF THE CHEST WITHOUT IV CONTRAST CLINICAL HISTORY: Dyspnea. Lung cancer. COMPARISON STUDY: Chest CT scans dated 02/10/2017 and 12/29/2007. Chest x-ray dated 04/22/2017. TECHNIQUE: CT scan of the thorax was performed from the thoracic inlet to the upper abdomen. Images are reviewed in the axial, sagittal, and coronal planes. IV contrast was not administered for this examination as per the referring clinician. Examination is significant suboptimal without IV contrast. A dose lowering technique was utilized adhering to the principles of ALARA. CT DOSE: 321.53 mGy.cm FINDINGS: Thyroid: Imaged portions of the thyroid gland are normal in size and attenuation. A 1.2 cm low-attenuation nodule is seen in the left thyroid lobe. Thoracic aorta: There is atherosclerotic calcification of the thoracic aorta, which is normal in caliber and demonstrates standard 3-vessel arch anatomy. Heart: The heart is mildly enlarged and without pericardial effusion. The coronary arteries are densely calcified. The pulmonary trunk is normal in caliber. Lungs and pleural spaces: There is a small to moderate left pleural effusion associated atelectasis, new from 02/10/2017. Advanced emphysema is observed. There are postoperative changes from left upper lobe pulmonary resection. The left upper lobe lesion along the resection margin has increased in size from 02/10/2017 and approaches the left hilum. This now measures at least 3.4 x 2.8 cm (previously measured up to 1.9 cm). Interstitial thickening and nodularity in the left upper lobe and lingula are concerning for malignant spread of tumor. The trachea and central airways are clear. Atelectasis versus scarring seen at the right lung base and there is trace right pleural effusion. A 4 mm pleural-based nodule in the right lower lobe is unchanged from previous and remains indeterminant. Mediastinum: Mediastinal lymphadenopathy is identified and has progressed from 02/10/2017. A subcarinal no on image #101 measures 3.3 x 2.7 cm (previously measuring 2.4 x 1.1 cm). A sonam aggregate in the anterior mediastinum on image #91 measures 5.3 x 2.7 cm (previously measuring 2.9 x 2.2 cm). Michelle: Not well assessed without IV contrast. There is infiltrative soft tissue in the left hilum with presumed left hilar adenopathy. Axillae: There is no axillary lymphadenopathy. Lower neck: There is supraclavicular lymphadenopathy, left greater than right. Several nodes demonstrate central necrosis. The largest node measures 2.5 x 1.7 cm as seen on image #44. Upper abdomen: Partially visualized upper abdominal viscera is within normal limits. Skeletal structures: The skeletal structures are osteopenic. Degenerative change and hyperkyphosis are noted in the thoracic spine. Multiple mild compression deformities are noted. No lytic or blastic bony lesions are seen. IMPRESSION: 1. Advanced emphysema with evidence of previous left upper lobe resection. 2. There has been overall progression of disease as compared to 02/10/2017 with an enlarging left upper lobe lesion, as well as progressive mediastinal, left hilar, and supraclavicular lymphadenopathy. 3. Suspect lymphangitic spread of tumor in the left upper lobe and lingula. 4. Small to moderate left and trace right pleural effusions which are new from previous. 5. Cardiomegaly. 6. An indeterminant 4 mm right lower lobe pulmonary nodule is unchanged from previous. Electronically signed by: Hubert Choe M.D. 05/27/2017 12:42 PM Dictated Date/Time: 05/27/2017 12:24 PM
== END | disposition home or self-care (01) ==
LOC: C.CTS 12:01
PROVIDERS: ATTEND Internal Medicine Pulmonary Disease
DX: J44.9 Chronic obstructive pulmonary disease, unspecified (principal); R06.02 Shortness of breath; C34.90 Malignant neoplasm of unspecified part of unspecified bronchus or lung; I51.7 Cardiomegaly; Z90.2 Acquired absence of lung [part of]

== ENCOUNTER → 2017-06-03 | Outpatient (CLI) | payer OTHER, BC ==
--- NOTE | 2017-06-03 13:03 | DIAGNOSTIC IMAGING REPORT ---
EFFUSION-CHEST/MEDIASTINUM ULTRASOUND CLINICAL HISTORY: R91.1 Solitary pulmonary [id number] Non-small cell lung cancer COMPARISON STUDY: Chest CT 05/27/2017. FINDINGS: There is no right-sided pleural effusion. Small left pleural effusion with an estimated volume of 174 cc. This contains a few septations. IMPRESSION: Small septated left pleural effusion. Electronically signed by: Armando Hidalgo M.D. 06/03/2017 1:02 PM Dictated Date/Time: 06/03/2017 1:01 PM
== END | disposition home or self-care (01) ==
LOC: C.ULTR 12:35
PROVIDERS: ATTEND Internal Medicine Pulmonary Disease
DX: R91.1 Solitary pulmonary nodule (principal); C34.90 Malignant neoplasm of unspecified part of unspecified bronchus or lung; J90 Pleural effusion, not elsewhere classified